=== PATIENT | male | born 1950 | race Caucasian/White ===

== ENCOUNTER 2016-03-21 19:28 | Emergency (ER) | payer MEDICAID ==
[~2016-03-21] VITALS: Ht 170.2 cm; Wt 80.7 kg
[~2016-03-21 19:28] MED LIST: ASPI-498 OR; CLOP75TA41 PO; ENAL5TAB92 PO; FAMO-12 PO; LEV250PM PO; LORA-352 PO; METO25TA3 PO; PRED-188 PO; SIMV-13 PO; [UNRECOGNIZED DRUG - CODE] PO; [UNRECOGNIZED DRUG - OTHER]
[2016-03-21 19:55] VITALS: BP 155/92
== END 2016-03-21 22:10 | disposition left against medical advice (07) ==
LOC: ER 19:30
DX: R06.02 Shortness of breath (principal); R05 Cough; Z53.21 Procedure and treatment not carried out due to patient leaving prior to being seen by health care provider
CPT/HCPCS: 93005

== ENCOUNTER 2016-10-04 06:20 | Emergency (ER) | payer MEDICARE, MEDICAID ==
[~2016-10-04] VITALS: Ht 170.2 cm; Wt 77.6 kg
[2016-10-04] MEDS ORDERED: SODIUM CHLORIDE 0.9% 1,000 ML IV ONE (06:46)
[2016-10-04] MEDS ORDERED: ASPirin 81 mg TAB PO ONE (07:00)
[2016-10-04 07:16] LABS: Basophils # (auto) 0.1 uL; CONDITION Y; Eosinophils # (auto) 0.1 uL; Eosinophils % (auto) 1.5 % (0.0-7.0); Hematocrit 41.9 % (41.0-53.0); Hemoglobin 14.2 g/dL (13.5-17.5); Lymphocytes # (auto) 1.8 uL; Lymphocytes % (auto) 20.5 % (10.0-50.0); Mean Corpuscular Hemoglobin 29.8 pg (28.0-32.0); Mean Corpuscular Hgb Conc. 33.9 g/dL (32.0-36.0); Mean Corpuscular Volume 88.1 fL (80.0-100.0); Monocytes # (auto) 0.5 uL; Monocytes % (auto) 5.4 % (0.0-12.0); Neutrophils # (auto) 6.1 uL; Neutrophils % (auto) 71.6 % (37.0-80.0); Platelet Count (auto) 268 10^3/uL (140-450); Red Cell Distribution Width 14.3 % (11.6-16.0); White Blood Cell 8.5 10^3/uL (4.4-10.8)
[2016-10-04 07:34] LABS: Albumin 3.8 g/dL (3.4-5.0); BUN/Creatinine Ratio 16.7; Calcium 8.3 mg/dL (8.5-10.1); Magnesium 2.1 mg/dL (1.6-2.6)
[2016-10-04 07:39] LABS: Bilirubin, Total 0.2 mg/dL (0.2-1.0); Total Protein 6.6 g/dL (6.4-8.2)
[2016-10-04 07:44] LABS: Potassium 3.9 mmol/L (3.5-5.1)
[2016-10-04 07:47] LABS: Partial Thromboplastin Time 26.8 sec (22.64-33.71); Prothrombin Time 10.9 sec (9.37-12.3)
[2016-10-04] MEDS ORDERED: IOHEXOL 350 MG/ML 100ML IJ ONE (10:03)
[2016-10-04 11:45] VITALS: BP 155/81
== END 2016-10-04 11:46 | disposition home or self-care (01) ==
LOC: ER 06:21
DX: F41.9 Anxiety disorder, unspecified (principal); R00.2 Palpitations; Z98.61 Coronary angioplasty status; I25.10 Atherosclerotic heart disease of native coronary artery without angina pectoris; I10 Essential (primary) hypertension; I25.2 Old myocardial infarction; K21.9 Gastro-esophageal reflux disease without esophagitis; J44.9 Chronic obstructive pulmonary disease, unspecified; F32.9 Major depressive disorder, single episode, unspecified; E78.5 Hyperlipidemia, unspecified; F12.10 Cannabis abuse, uncomplicated; F17.210 Nicotine dependence, cigarettes, uncomplicated
CPT/HCPCS: 36415; 71020; 71275; 80053; 83735; 84443; 84484; 85025; 85379; 85610; 85730; 93005; 94761; 96360; 96361; 99285; J7030; Q9967

== ENCOUNTER 2017-01-01 08:59 | Inpatient (IN) | payer MEDICAID, MEDICARE ==
[~2017-01-01] VITALS: Ht 170.2 cm; Wt 79.4 kg
[2017-01-01] MEDS ORDERED: ENALAPRIL MALEATE 2.5 MG TAB PO SCH (10:00)
[2017-01-01 10:56] LABS: Basophils # (auto) 0.1 uL; Basophils % (auto) 1.3 % (0.0-2.0); Eosinophils # (auto) 0.2 uL; Eosinophils % (auto) 2.7 % (0.0-7.0); Hematocrit 47.4 % (41.0-53.0); Hemoglobin 16.1 g/dL (13.5-17.5); Lymphocytes # (auto) 1.4 uL; Lymphocytes % (auto) 20.8 % (10.0-50.0); Mean Corpuscular Hemoglobin 29.9 pg (28.0-32.0); Mean Corpuscular Volume 87.8 fL (80.0-100.0); Monocytes # (auto) 0.3 uL; Monocytes % (auto) 4.5 % (0.0-12.0); Neutrophils # (auto) 4.9 uL; Neutrophils % (auto) 70.7 % (37.0-80.0); Platelet Count (auto) 223 10^3/uL (140-450); Red Blood Cells 5.39 10^6/uL (4.5-5.90); Red Cell Distribution Width 14.2 % (11.8-14.3); White Blood Cell 6.9 10^3/uL (4.4-10.8)
[2017-01-01] MEDS ORDERED: SODIUM CHLORIDE 0.9% 1,000 ML IV ONE (11:00)
[2017-01-01] MEDS ORDERED: HYDROmorphone HCL 2 MG/ML VL IV ONE (11:00)
[2017-01-01] MEDS ORDERED: ONDANSETRON HCL 4 MG/2 ML VIAL IV ONE (11:00)
[2017-01-01 11:10] LABS: Alanine Aminotransferase 27 U/L (16-61); Anion Gap 7 (5-15); Aspartate Aminotransferase 19 U/L (15-37); BUN/Creatinine Ratio 12.1; Blood Urea Nitrogen 11 mg/dL (7-18); Calcium 9.1 mg/dL (8.5-10.1); Carbon Dioxide 25 mmol/L (21-32); Chloride 107 mmol/L (98-107); GFR African American 108 mL/min; GFR Non-African American 89 mL/min; Glucose 88 mg/dL (74-106); Magnesium 2.1 mg/dL (1.6-2.6); Potassium 4.1 mmol/L (3.5-5.1); Sodium 139 mmol/L (136-145)
[2017-01-01 11:15] LABS: Alkaline Phosphatase 58 U/L (45-117); Bilirubin, Total 0.7 mg/dL (0.2-1.0); Total Protein 7.2 g/dL (6.4-8.2)
[2017-01-01] MEDS ORDERED: PANTOPRAZOLE 40 MG/10 ML VIAL IV ONE (11:15)
[2017-01-01 11:32] LABS: Amylase 93 U/L (25-115); Blood Alcohol < 3.0 mg/dL (0-5); Lipase 245 U/L (73-393)
[2017-01-01 11:50] LABS: Alcohol, Urine < 3.0 mg/dL (0-5); Amphetamine Screen, Urine NEGATIVE (NEGATIVE); Barbiturate Scree,Urine NEGATIVE (NEGATIVE); Benzodiazephine Screen, Urine NEGATIVE (NEGATIVE); Cannabinoid Screen, Urine POSITIVE (NEGATIVE); Cocaine Screen, Urine NEGATIVE (NEGATIVE); Opiate Scree,Urine NEGATIVE (NEGATIVE); Phencyclidine Screen, Urine NEGATIVE (NEGATIVE)
[2017-01-01] MEDS: SODIUM CHLORIDE 0.9% 1,000 ML IV SCH ×2 (13:58→21:50)
[2017-01-01] MEDS ORDERED: ACETAMINOPHEN 500 MG TAB PO PRN (14:00)
[2017-01-01] MEDS ORDERED: HYDROmorphone HCL 2 MG/ML VL IV PRN (14:00)
[2017-01-01] MEDS ORDERED: HYDROcodone-ACET 5/325MG TAB PO PRN (14:00)
[2017-01-01] MEDS ORDERED: NITROGLYCERIN 0.4 MG SL TAB SL PRN (14:00)
[2017-01-01] MEDS ORDERED: TEMAZEPAM 15 MG CAP PO PRN (14:00)
[2017-01-01] MEDS ORDERED: ALBUTEROL SULF 2.5 MG/0.5ML(0.5%) NEB SOLN NEB PRN (14:00)
[2017-01-01] MEDS ORDERED: PROMETHAZINE HCL 25 MG/ML 1ML IV PRN (14:00)
[2017-01-01] MEDS ORDERED: FAMOTIDINE 20 MG TAB PO ONE ×2 (14:15→15:45)
[2017-01-01] MEDS ORDERED: METOPROLOL TARTRATE 25 MG TAB PO ONE ×2 (14:15→15:45)
[2017-01-01] MEDS ORDERED: CLOPIDOGREL BISULFATE 75 MG TAB PO ONE ×3 (14:15→17:45)
[2017-01-01] MEDS ORDERED: ENOXAPARIN SOD 40 MG/0.4 ML SYRINGE SC ONE ×2 (14:15→15:45)
[2017-01-01] MEDS ORDERED: ENALAPRIL MALEATE 2.5 MG TAB PO ONE (14:15)
[2017-01-01] MEDS ORDERED: NITROGLYCERIN 0.2MG/HR TOPICAL PATCH TD ONE ×2 (14:15→15:45)
[2017-01-01 14:48] VITALS: BP 127/83
[2017-01-01 18:30] VITALS: BP 110/60
[2017-01-01 20:00] VITALS: BP 96/64
[2017-01-01 21:44] VITALS: BP 93/64
[2017-01-01] MEDS ORDERED: ATORVASTATIN 20 MG TAB PO SCH (22:00)
[2017-01-01] MEDS ORDERED: METOPROLOL TARTRATE 25 MG TAB PO SCH (22:00)
[2017-01-02 04:38] VITALS: BP 95/60
[2017-01-02 06:18] LABS: Cholesterol 138 mg/dL (< 200); HDL Cholesterol 40 mg/dL (40-59); LDL Cholesterol 90 mg/dL (< 100); Triglycerides 107 mg/dL (< 150)
[2017-01-02] MEDS: LORazepam 0.5 MG TAB PO PRN ×2 (08:56→16:01)
[2017-01-02 09:00] VITALS: BP 105/67
[2017-01-02] MEDS ORDERED: SODIUM CHLORIDE 0.9% 1,000 ML IV ONE (09:30)
[2017-01-02] MEDS ORDERED: ENOXAPARIN SOD 40 MG/0.4 ML SYRINGE SC SCH (10:00)
[2017-01-02] MEDS ORDERED: FAMOTIDINE 20 MG TAB PO SCH (10:00)
[2017-01-02] MEDS ORDERED: ASPirin 81 mg TAB PO SCH (10:00)
[2017-01-02] MEDS ORDERED: NITROGLYCERIN 0.2MG/HR TOPICAL PATCH TD SCH (10:00)
[2017-01-02] MEDS ORDERED: CLOPIDOGREL BISULFATE 75 MG TAB PO SCH (10:00)
[2017-01-02] MEDS ORDERED: SODIUM CHLORIDE 0.9% 1,000 ML IV SCH (10:30)
[2017-01-02 13:17] VITALS: BP 114/73
[2017-01-02 17:11] VITALS: BP 122/77
== END 2017-01-02 16:45 | disposition left against medical advice (07) | DRG 303 ==
LOC: ER 08:59 → TELE 09:00 → ER 13:56 → TELE-E-ADS 17:31 → TELE-EAST 18:57
PROVIDERS: ADMIT Internal Medicine; ATTEND Internal Medicine
DX: I25.10 Atherosclerotic heart disease of native coronary artery without angina pectoris (principal); I95.9 Hypotension, unspecified; E78.5 Hyperlipidemia, unspecified; J44.9 Chronic obstructive pulmonary disease, unspecified; F12.10 Cannabis abuse, uncomplicated; F17.210 Nicotine dependence, cigarettes, uncomplicated; K21.9 Gastro-esophageal reflux disease without esophagitis; I10 Essential (primary) hypertension; I25.2 Old myocardial infarction; Z82.49 Family history of ischemic heart disease and other diseases of the circulatory system; Z82.5 Family history of asthma and other chronic lower respiratory diseases; Z95.5 Presence of coronary angioplasty implant and graft; Z88.5 Allergy status to narcotic agent; Z88.0 Allergy status to penicillin; Z88.2 Allergy status to sulfonamides; Z88.8 Allergy status to other drugs, medicaments and biological substances; Z79.2 Long term (current) use of antibiotics; Z79.82 Long term (current) use of aspirin; Z79.899 Other long term (current) drug therapy
CPT/HCPCS: 36415; 71020; 80053; 80061; 80307; 80320; 82150; 82550; 83690; 83735; 84484; 85025; 85379; 85652; 86141; 93005; 93306; 96361; 96372; 96374; 96375; C9113; J2405

== ENCOUNTER 2017-07-10 11:05 | Emergency (ER) | payer MEDICARE, MEDICAID ==
[~2017-07-10] VITALS: Ht 170.2 cm; Wt 81.6 kg
[2017-07-10 11:37] VITALS: BP 135/80
[2017-07-10] MEDS ORDERED: TETRACAINE HCL 0.5% OPTH(EYE) SOLN 4ML EACHEYE ONE (11:45)
[2017-07-10] MEDS ORDERED: FLUORESCEIN SOD 1 MG TEST STRIP OP ONE (11:45)
== END 2017-07-10 12:48 | disposition home or self-care (01) ==
LOC: ER 11:11
DX: T15.02XA Foreign body in cornea, left eye, initial encounter (principal); F17.210 Nicotine dependence, cigarettes, uncomplicated; I10 Essential (primary) hypertension; I25.10 Atherosclerotic heart disease of native coronary artery without angina pectoris; E78.5 Hyperlipidemia, unspecified; J44.9 Chronic obstructive pulmonary disease, unspecified; K21.9 Gastro-esophageal reflux disease without esophagitis; Z79.82 Long term (current) use of aspirin; Z88.0 Allergy status to penicillin; X58.XXXA Exposure to other specified factors, initial encounter; Y93.89 Activity, other specified; Y92.89 Other specified places as the place of occurrence of the external cause; Y99.8 Other external cause status

== ENCOUNTER 2018-06-02 08:57 | Inpatient (IN) | payer MEDICARE, MEDICAID | END 2018-06-03 15:27 | disposition home or self-care (01) | LOC: ER 08:57 → TELE-WESTW 11:15 | DX: R07.9 Chest pain, unspecified (principal); F32.9 Major depressive disorder, single episode, unspecified; F41.9 Anxiety disorder, unspecified; E78.5 Hyperlipidemia, unspecified; M19.90 Unspecified osteoarthritis, unspecified site; I50.9 Heart failure, unspecified; I11.0 Hypertensive heart disease with heart failure ==

== ENCOUNTER 2018-12-27 13:43 | Emergency (ER) | payer MEDICARE, MEDICAID ==
[~2018-12-27] VITALS: Ht 170.2 cm; Wt 77.1 kg
[~2018-12-27 13:43] MED LIST changes: -CLOP75TA41 PO; +ENAL10TA2 PO; -ENAL5TAB92 PO; -FAMO-12 PO; -LEV250PM PO; -LORA-352 PO; -METO25TA3 PO; +METO25TA36 PO; -PRED-188 PO; -SIMV-13 PO; -[UNRECOGNIZED DRUG - CODE] PO; -[UNRECOGNIZED DRUG - OTHER]
[2018-12-27 16:56] VITALS: BP 125/82
== END 2018-12-27 16:58 | disposition home or self-care (01) ==
LOC: ER 13:54
DX: S20.212A Contusion of left front wall of thorax, initial encounter (principal); I25.10 Atherosclerotic heart disease of native coronary artery without angina pectoris; J44.9 Chronic obstructive pulmonary disease, unspecified; F32.9 Major depressive disorder, single episode, unspecified; E78.5 Hyperlipidemia, unspecified; I10 Essential (primary) hypertension; I25.2 Old myocardial infarction; F17.210 Nicotine dependence, cigarettes, uncomplicated; Z88.5 Allergy status to narcotic agent; Z88.0 Allergy status to penicillin; Z88.2 Allergy status to sulfonamides; Y04.0XXA Assault by unarmed brawl or fight, initial encounter; Y93.89 Activity, other specified; Y92.89 Other specified places as the place of occurrence of the external cause; Y99.8 Other external cause status
CPT/HCPCS: 71101; 93005

== ENCOUNTER 2019-06-10 19:13 | Emergency (ER) | payer MEDICARE, MEDICAID ==
[~2019-06-10] VITALS: Ht 170.2 cm; Wt 74.8 kg
[2019-06-10] MEDS ORDERED: fentaNYL CITRATE 100 MCG/2 ML VL IV ONE ×2 (19:45→20:45)
[2019-06-10] MEDS ORDERED: IOHEXOL 300 MG/ML 100ML BOTTLE IJ ONE (19:49)
[2019-06-10 20:02] LABS: Basophils # (auto) 0.2 10 ^3/uL (0-0.2); Basophils % (auto) 1.5 % (0.0-2.0); Eosinophils # (auto) 0.2 10 ^3/uL (0-0.8); Hematocrit 43.2 % (41.0-53.0); Hemoglobin 14.5 g/dL (13.5-17.5); Lymphocytes # (auto) 2.4 10 ^3/uL (0.4-5.4); Lymphocytes % (auto) 22.9 % (10.0-50.0); Mean Corpuscular Hemoglobin 29.2 pg (28.0-32.0); Mean Corpuscular Hgb Conc. 33.6 g/dL (32.0-36.0); Mean Corpuscular Volume 86.9 fL (80.0-100.0); Monocytes # (auto) 0.5 10 ^3/uL (0-1.3); Monocytes % (auto) 4.9 % (0.0-12.0); Neutrophils # (auto) 7.1 10 ^3/uL (1.6-8.6); Neutrophils % (auto) 68.7 % (37.0-80.0); Nucleated Red Blood Cells % 0.1 %; Platelet Count (auto) 249 10^3/uL (140-450); Red Blood Cells 4.97 10^6/uL (4.5-5.90); Red Cell Distribution Width 13.8 % (11.8-14.3); White Blood Cell 10.4 10^3/uL (4.4-10.8)
[2019-06-10 20:25] LABS: Albumin 3.6 g/dL (3.4-5.0); BUN/Creatinine Ratio 11.6; Calcium 8.7 mg/dL (8.5-10.1); Magnesium 1.9 mg/dL (1.6-2.6); Potassium 3.8 mmol/L (3.5-5.1)
[2019-06-10 20:30] LABS: Bilirubin, Total 0.5 mg/dL (0.2-1.0); Total Protein 7.1 g/dL (6.4-8.2)
[2019-06-10 21:02] LABS: Urine Bacteria NONE SEEN /hpf (None Seen); Urine Blood 1+ /uL (Negative); Urine Mucus FEW (None Seen); Urine Specific Gravity 1.015 (1.001-1.035); Urine WBC 1 /hpf (0 - 3)
[2019-06-10 22:00] VITALS: BP 102/76
[2019-06-10] MEDS ORDERED: HYDROcodone-ACET 10/325MG TAB PO ONE (22:15)
== END 2019-06-10 22:30 | disposition home or self-care (01) ==
LOC: ER 19:14
DX: K76.0 Fatty (change of) liver, not elsewhere classified (principal); K76.89 Other specified diseases of liver; I25.10 Atherosclerotic heart disease of native coronary artery without angina pectoris; J44.9 Chronic obstructive pulmonary disease, unspecified; I10 Essential (primary) hypertension; I25.2 Old myocardial infarction; E78.5 Hyperlipidemia, unspecified; F17.210 Nicotine dependence, cigarettes, uncomplicated; Z79.82 Long term (current) use of aspirin; Z88.0 Allergy status to penicillin; Z79.899 Other long term (current) drug therapy; Z88.2 Allergy status to sulfonamides; Z88.5 Allergy status to narcotic agent
CPT/HCPCS: 36415; 71045; 74177; 80053; 81001; 82150; 83690; 83735; 84484; 85025; 93005; 96374; 96376; 99285; J3010; Q9967

== ENCOUNTER 2020-01-03 11:03 | Emergency (ER) | payer MEDICARE, MEDICAID ==
[~2020-01-03] VITALS: Ht 170.2 cm; Wt 79.4 kg
[~2020-01-03 11:03] MED LIST changes: +ENAL10TA13 PO; -ENAL10TA2 PO
[2020-01-03 11:54] LABS: Basophils # (auto) 0.1 10 ^3/uL (0-0.2); Basophils % (auto) 1.4 % (0.0-2.0); Eosinophils # (auto) 0.2 10 ^3/uL (0-0.8); Eosinophils % (auto) 3.4 % (0.0-7.0); Hematocrit 43.6 % (41.0-53.0); Hemoglobin 14.9 g/dL (13.5-17.5); Lymphocytes # (auto) 2.2 10 ^3/uL (0.4-5.4); Mean Corpuscular Hgb Conc. 34.1 g/dL (32.0-36.0); Mean Corpuscular Volume 88.1 fL (80.0-100.0); Monocytes # (auto) 0.4 10 ^3/uL (0-1.3); Monocytes % (auto) 5.2 % (0.0-12.0); Nucleated Red Blood Cells % 0.1 %; Platelet Count (auto) 241 10^3/uL (140-450); Red Blood Cells 4.95 10^6/uL (4.5-5.90); Red Cell Distribution Width 14.4 % (11.8-14.3); White Blood Cell 6.9 10^3/uL (4.4-10.8)
[2020-01-03 12:23] LABS: Albumin 3.7 g/dL (3.4-5.0); Anion Gap 5 (5-15); Blood Urea Nitrogen 15 mg/dL (7-18); Calcium 8.6 mg/dL (8.5-10.1); Carbon Dioxide 25 mmol/L (21-32); Chloride 111 mmol/L (98-107); Glucose 88 mg/dL (74-106); Magnesium 2.3 mg/dL (1.6-2.6); Potassium 3.8 mmol/L (3.5-5.1); Sodium 141 mmol/L (136-145)
[2020-01-03 12:29] LABS: Alanine Aminotransferase 19 U/L (16-61); Alkaline Phosphatase 54 U/L (45-117); Aspartate Aminotransferase 11 U/L (15-37); BUN/Creatinine Ratio 13.5; Bilirubin, Total 0.3 mg/dL (0.2-1.0); GFR African American 85 mL/min; GFR Non-African American 70 mL/min; Total Protein 6.5 g/dL (6.4-8.2)
[2020-01-03 12:37] VITALS: BP 128/81
[2020-01-03] MEDS ORDERED: ALBUTEROL SULF 2.5 MG/0.5ML(0.5%) NEB SOLN NEB ONE (15:00)
[2020-01-03] MEDS ORDERED: IPRATROPIUM BROM 0.5 MG/2.5ML INH SOL NEB ONE (15:00)
== END 2020-01-03 16:27 | disposition left against medical advice (07) ==
LOC: ER 11:03
DX: J44.1 Chronic obstructive pulmonary disease with (acute) exacerbation (principal); F17.210 Nicotine dependence, cigarettes, uncomplicated; I25.10 Atherosclerotic heart disease of native coronary artery without angina pectoris; I10 Essential (primary) hypertension; I25.2 Old myocardial infarction; E78.5 Hyperlipidemia, unspecified; Z20.828 Contact with and (suspected) exposure to other viral communicable diseases; Z98.61 Coronary angioplasty status
CPT/HCPCS: 36415; 71045; 80053; 83605; 83735; 84484; 85025; 87040; 87426; 93005

== ENCOUNTER 2022-09-11 07:05 | Emergency (ER) | payer OTHER, MEDICAID ==
[~2022-09-11] VITALS: Ht 170.2 cm; Wt 76.2 kg
[~2022-09-11 07:05] MED LIST changes: -ENAL10TA13 PO; +ENAL1TAB47 PO
[2022-09-11 07:31] LABS: Basophils # (auto) 0 10 ^3/uL (0-0.2); Basophils % (auto) 0.1 % (0.0-2.0); Eosinophils # (auto) 0.5 10 ^3/uL (0-0.8); Eosinophils % (auto) 6.2 % (0.0-7.0); Hematocrit 44.8 % (41.0-53.0); Lymphocytes # (auto) 2.2 10 ^3/uL (0.4-5.4); Lymphocytes % (auto) 27.4 % (10.0-50.0); Mean Corpuscular Hemoglobin 29.2 pg (28.0-32.0); Mean Corpuscular Hgb Conc. 33.4 g/dL (32.0-36.0); Mean Corpuscular Volume 87.5 fL (80.0-100.0); Monocytes # (auto) 0.5 10 ^3/uL (0-1.3); Monocytes % (auto) 6.6 % (0.0-12.0); Neutrophils # (auto) 4.7 10 ^3/uL (1.6-8.6); Neutrophils % (auto) 59.7 % (37.0-80.0); Nucleated Red Blood Cells % 0.1 %; Red Blood Cells 5.13 10^6/uL (4.5-5.90); Red Cell Distribution Width 14.7 % (11.8-14.3); White Blood Cell 7.9 10^3/uL (4.4-10.8)
[2022-09-11 07:47] LABS: Albumin 3.8 g/dL (3.4-5.0); Magnesium 2.4 mg/dL (1.6-2.6); Potassium 4.3 mmol/L (3.5-5.1)
[2022-09-11 07:51] LABS: BUN/Creatinine Ratio 17.9 (10.0-20.0); Bilirubin, Total 0.3 mg/dL (0.2-1.0); Total Protein 6.7 g/dL (6.4-8.2)
[2022-09-11 08:30] LABS: Urine Bacteria FEW /hpf (None Seen); Urine Blood 1+ /uL (Negative); Urine Hyaline Cast FEW /lpf (0 - 2); Urine Mucus FEW (None Seen); Urine Specific Gravity 1.022 (1.001-1.035); Urine WBC 6 /hpf (0 - 3)
[2022-09-11 08:38] LABS: Alcohol, Urine < 3.0 mg/dL (0-10); Amphetamine Screen, Urine NEGATIVE (NEGATIVE); Barbiturate Scree,Urine NEGATIVE (NEGATIVE); Benzodiazephine Screen, Urine NEGATIVE (NEGATIVE); Cannabinoid Screen, Urine POSITIVE (NEGATIVE); Cocaine Screen, Urine NEGATIVE (NEGATIVE); Opiate Scree,Urine NEGATIVE (NEGATIVE); Phencyclidine Screen, Urine NEGATIVE (NEGATIVE)
[2022-09-11] MEDS ORDERED: SODIUM CHLORIDE 0.9% 1,000 ML IVB ONE (10:00)
[2022-09-11] MEDS ORDERED: ONDANSETRON HCL 4 MG/2 ML VIAL IV ONE (10:00)
[2022-09-11] MEDS ORDERED: HYDROmorphone HCL 2 MG/ML VL/or syr IV ONE (10:00)
[2022-09-11 10:15] VITALS: BP 155/95
[2022-09-11] MEDS ORDERED: IOHEXOL 300 MG/ML 100ML BOTTLE IJ ONE (10:20)
== END 2022-09-11 14:41 | disposition left against medical advice (07) ==
LOC: ER 07:05
DX: K57.30 Diverticulosis of large intestine without perforation or abscess without bleeding (principal); K40.90 Unilateral inguinal hernia, without obstruction or gangrene, not specified as recurrent; I25.2 Old myocardial infarction; I10 Essential (primary) hypertension; E78.5 Hyperlipidemia, unspecified; F32.9 Major depressive disorder, single episode, unspecified; J44.9 Chronic obstructive pulmonary disease, unspecified; I25.10 Atherosclerotic heart disease of native coronary artery without angina pectoris; F17.210 Nicotine dependence, cigarettes, uncomplicated; Z88.5 Allergy status to narcotic agent; Z98.890 Other specified postprocedural states; Z88.0 Allergy status to penicillin; Z88.2 Allergy status to sulfonamides; Z79.82 Long term (current) use of aspirin; Z79.899 Other long term (current) drug therapy
CPT/HCPCS: 36415; 71045; 74177; 80053; 80307; 80320; 81001; 83735; 84484; 85025; 93005; 96360; 96361; 99285; J7030; Q9967

== ENCOUNTER 2023-03-12 11:01 | Emergency (ER) | payer OTHER, MEDICAID ==
[~2023-03-12] VITALS: Ht 170.2 cm; Wt 79.5 kg
[2023-03-12 13:17] LABS: Basophils # (auto) 0.1 10 ^3/uL (0-0.2); Eosinophils # (auto) 0.4 10 ^3/uL (0-0.8); Eosinophils % (auto) 5.1 % (0.0-7.0); Hemoglobin 15.2 g/dL (13.5-17.5); Lymphocytes # (auto) 2.3 10 ^3/uL (0.4-5.4); Mean Corpuscular Hemoglobin 28.7 pg (28.0-32.0); Mean Corpuscular Hgb Conc. 33.1 g/dL (32.0-36.0); Mean Corpuscular Volume 86.6 fL (80.0-100.0); Monocytes # (auto) 0.4 10 ^3/uL (0-1.3); Monocytes % (auto) 5.3 % (0.0-12.0); Neutrophils % (auto) 55.6 % (37.0-80.0); Nucleated Red Blood Cells % 0.1 %; Red Blood Cells 5.31 10^6/uL (4.5-5.90); Red Cell Distribution Width 14.3 % (11.8-14.3); White Blood Cell 7.1 10^3/uL (4.4-10.8)
[2023-03-12 13:34] VITALS: BP 140/82; PULSE 68; RESP 15; TEMP 98.2; O2SAT 96
[2023-03-12 13:36] LABS: Albumin 4.2 g/dL (3.2-4.8); Alkaline Phosphatase 57 U/L (46-116); Anion Gap 6 (5-15); Aspartate Aminotransferase 15 U/L (13-40); BUN/Creatinine Ratio 9.9 (10.0-20.0); Bilirubin, Total 0.7 mg/dL (0.2-1.0); Blood Urea Nitrogen 10 mg/dL (9-23); Calcium 9.1 mg/dL (8.7-10.4); Carbon Dioxide 26 mmol/L (20-30); Chloride 109 mmol/L (98-107); Glucose 80 mg/dL (74-106); Potassium 4.5 mmol/L (3.5-5.1); Sodium 141 mmol/L (136-145); Total Protein 6.6 g/dL (5.7-8.2)
[2023-03-12 13:37] LABS: Alanine Aminotransferase < 9 U/L (7-40)
[2023-03-12] MEDS ORDERED: ACET-1080 PO (14:36)
== END 2023-03-12 14:37 | disposition home or self-care (01) ==
LOC: ER 11:01
DX: I10 Essential (primary) hypertension (principal); R51.9 Headache, unspecified; I25.2 Old myocardial infarction; I25.10 Atherosclerotic heart disease of native coronary artery without angina pectoris; E78.5 Hyperlipidemia, unspecified; F17.210 Nicotine dependence, cigarettes, uncomplicated; Z79.82 Long term (current) use of aspirin; Z79.899 Other long term (current) drug therapy; Z88.0 Allergy status to penicillin; Z88.2 Allergy status to sulfonamides; Z88.5 Allergy status to narcotic agent
CPT/HCPCS: 36415; 70450; 80053; 84484; 85025

== ENCOUNTER 2023-10-27 10:47 | Inpatient (IN) | payer OTHER, MEDICAID ==
[~2023-10-27] VITALS: Ht 170.2 cm; Wt 77.4 kg
[~2023-10-27 10:47] MED LIST changes: +ACET-1080 PO
[2023-10-27 11:00] VITALS: PULSE 85; RESP 16; O2SAT 98
[2023-10-27] MEDS: HYDROmorphone HCL 2 MG/ML VL/or syr IV ONE ×2 (11:15)
[2023-10-27] MEDS: ONDANSETRON HCL 4 MG/2 ML VIAL IV ONE (11:20)
[2023-10-27] MEDS: SODIUM CHLORIDE 0.9% 1,000 ML IV ONE (11:23)
[2023-10-27 12:02] LABS: Basophils # (auto) 0.1 10 ^3/uL (0-0.2); Eosinophils # (auto) 0.3 10 ^3/uL (0-0.8); Hematocrit 45.7 % (41.0-53.0); Hemoglobin 15.8 g/dL (13.5-17.5); Lymphocytes # (auto) 2.2 10 ^3/uL (0.4-5.4); Lymphocytes % (auto) 33.2 % (10.0-50.0); Mean Corpuscular Hgb Conc. 34.6 g/dL (32.0-36.0); Mean Corpuscular Volume 86.8 fL (80.0-100.0); Monocytes # (auto) 0.3 10 ^3/uL (0-1.3); Monocytes % (auto) 4.4 % (0.0-12.0); Neutrophils # (auto) 3.8 10 ^3/uL (1.6-8.6); Neutrophils % (auto) 56.4 % (37.0-80.0); Nucleated Red Blood Cells % 0.2 %; Platelet Count (auto) 237 10^3/uL (140-450); Red Blood Cells 5.26 10^6/uL (4.5-5.90); Red Cell Distribution Width 14.1 % (11.8-14.3); White Blood Cell 6.7 10^3/uL (4.4-10.8)
[2023-10-27 12:03] LABS: Alanine Aminotransferase 19 U/L (7-40); Albumin 4.3 g/dL (3.2-4.8); Alkaline Phosphatase 62 U/L (46-116); Anion Gap 5 (5-15); Aspartate Aminotransferase 16 U/L (13-40); BUN/Creatinine Ratio 15.7 (10.0-20.0); Bilirubin, Total 0.8 mg/dL (0.2-1.0); Blood Urea Nitrogen 17 mg/dL (9-23); Calcium 9.4 mg/dL (8.7-10.4); Carbon Dioxide 23 mmol/L (20-30); Chloride 109 mmol/L (98-107); Glucose 95 mg/dL (74-106); Potassium 4.1 mmol/L (3.5-5.1); Sodium 137 mmol/L (136-145); Total Protein 6.6 g/dL (5.7-8.2)
[2023-10-27] MEDS: PIPERACILLIN-TAZOB 3.375GM 100 ML IV ONE (12:45)
[2023-10-27] MEDS: BUPIVACAINE 0.25% INJ 50ML VIAL ONE (14:04)
[2023-10-27] MEDS: LIDOCAINE W/ EPINEPHRINE 1% 20ML VIAL ONE (14:04)
[2023-10-27] MEDS: ceFAZolin 2 GM/D5W50ml 50 ML IV ONE (14:04)
[2023-10-27] MEDS: SUCCINYLCHOLINE CHLORIDE 20 MG/ML 10ML VIAL IV ONE (14:17)
[2023-10-27] MEDS ORDERED: fentaNYL CITRATE 100 MCG/2 ML VL ONE (14:18)
[2023-10-27] MEDS ORDERED: PROPOFOL 10 MG/ML 20 ML IV ONE (14:18)
[2023-10-27 14:37] LABS: INR 1.05 (0.9-1.15); Partial Thromboplastin Time 27.3 SEC (24.5-34.5); Prothrombin Time 11.1 sec (9.3-11.8)
[2023-10-27] MEDS ORDERED: MEPERIDINE HCL (25 MG/ML) 1ML VIAL ONE (15:02)
[2023-10-27] MEDS ORDERED: DexAMETHasone SOD PHOS 10MG/1ML VIAL INJ ONE (15:04)
[2023-10-27] MEDS ORDERED: ONDANSETRON HCL 4 MG/2 ML VIAL ONE (15:04)
[2023-10-27] MEDS ORDERED: GLYCOPYRROLATE 0.2 MG/ML 1ML VIAL ONE (15:34)
[2023-10-27] MEDS ORDERED: NEOSTIGMINE 1 MG/ML INJ (10mg/10ML VIAL) ONE (15:36)
[2023-10-27 15:45] VITALS: RESP 16; O2SAT 100
[2023-10-27] MEDS ORDERED: ONDANSETRON HCL 4 MG/2 ML VIAL IV ONE ×2 (16:00→16:30)
[2023-10-27] MEDS ORDERED: HYDROmorphone HCL 2 MG/ML VL/or syr IV PRN ×2 (16:00)
[2023-10-27] MEDS ORDERED: HYDROmorphone HCL 2 MG/ML VL/or syr IV ONE (16:30)
[2023-10-27] MEDS ORDERED: ceFAZolin 1GM/50ML 50 ML IV ONE (16:30)
[2023-10-27] MEDS ORDERED: NITROGLYCERIN 0.4 MG SL TAB SL PRN (17:30)
[2023-10-27] MEDS ORDERED: MORPHINE SULFATE INJ 2 MG/ml SYRG IV PRN (17:30)
[2023-10-27] MEDS: D5W/SOD CHL 0.45%/KCL 20MEQ 1,000 ML IV ONE (18:19)
[2023-10-27 18:25] VITALS: O2SAT 97
[2023-10-27] MEDS ORDERED: HYDROcodone-ACET 10/325MG TAB PO PRN (19:30)
[2023-10-27 20:00] VITALS: PULSE 79; RESP 18; O2SAT 95
[2023-10-27 21:00] VITALS: BP 105/70; PULSE 79; RESP 18; TEMP 97.7; O2SAT 95
[2023-10-28] VITALS (8 sets, daily range): BP systolic 94–161; BP diastolic 63–85; PULSE 64–131; RESP 16–19; TEMP 97.5–98.7; O2SAT 92–100
[2023-10-28 06:03] LABS: Basophils # (auto) 0.1 10 ^3/uL (0-0.2); Basophils % (auto) 0.4 % (0.0-2.0); Eosinophils # (auto) 0 10 ^3/uL (0-0.8); Hematocrit 42.4 % (41.0-53.0); Hemoglobin 14.6 g/dL (13.5-17.5); Lymphocytes # (auto) 1.2 10 ^3/uL (0.4-5.4); Lymphocytes % (auto) 9.4 % (10.0-50.0); Mean Corpuscular Hemoglobin 29.9 pg (28.0-32.0); Mean Corpuscular Hgb Conc. 34.5 g/dL (32.0-36.0); Mean Corpuscular Volume 86.7 fL (80.0-100.0); Monocytes # (auto) 0.5 10 ^3/uL (0-1.3); Monocytes % (auto) 3.7 % (0.0-12.0); Neutrophils # (auto) 10.7 10 ^3/uL (1.6-8.6); Neutrophils % (auto) 86.5 % (37.0-80.0); Nucleated Red Blood Cells % 0.1 %; Platelet Count (auto) 219 10^3/uL (140-450); Red Blood Cells 4.89 10^6/uL (4.5-5.90); White Blood Cell 12.4 10^3/uL (4.4-10.8)
[2023-10-28 06:17] LABS: Chloride 108 mmol/L (98-107); Potassium 4.9 mmol/L (3.5-5.1); Sodium 137 mmol/L (136-145)
[2023-10-28 06:18] LABS: Anion Gap 6 (5-15); Carbon Dioxide 23 mmol/L (20-30)
[2023-10-28 06:19] LABS: Calcium 8.7 mg/dL (8.7-10.4)
[2023-10-28 06:23] LABS: Glucose 142 mg/dL (74-106)
[2023-10-28 06:24] LABS: BUN/Creatinine Ratio 14.1 (10.0-20.0); Blood Urea Nitrogen 14 mg/dL (9-23)
[2023-10-28] MEDS: HYDROcodone-ACET 10/325MG TAB PO PRN (11:42)
[2023-10-29] MEDS: HYDROmorphone HCL 2 MG/ML VL/or syr IV PRN (01:59)
[2023-10-29 05:00] VITALS: BP 164/89; PULSE 111; RESP 20; TEMP 97.7; O2SAT 95
[2023-10-29 05:57] LABS: Chloride 109 mmol/L (98-107); Potassium 4.1 mmol/L (3.5-5.1); Sodium 139 mmol/L (136-145)
[2023-10-29 05:58] LABS: Anion Gap 3 (5-15); Calcium 9.2 mg/dL (8.7-10.4); Carbon Dioxide 27 mmol/L (20-30)
[2023-10-29 06:03] LABS: BUN/Creatinine Ratio 13.1 (10.0-20.0); Blood Urea Nitrogen 13 mg/dL (9-23); Glucose 89 mg/dL (74-106)
[2023-10-29 07:52] LABS: Basophils # (auto) 0.1 10 ^3/uL (0-0.2); Basophils % (auto) 0.4 % (0.0-2.0); Eosinophils # (auto) 0.1 10 ^3/uL (0-0.8); Eosinophils % (auto) 0.5 % (0.0-7.0); Hematocrit 41.1 % (41.0-53.0); Lymphocytes # (auto) 2.7 10 ^3/uL (0.4-5.4); Lymphocytes % (auto) 22.2 % (10.0-50.0); Mean Corpuscular Hemoglobin 29.8 pg (28.0-32.0); Mean Corpuscular Volume 87.7 fL (80.0-100.0); Monocytes # (auto) 0.9 10 ^3/uL (0-1.3); Monocytes % (auto) 7.2 % (0.0-12.0); Neutrophils # (auto) 8.5 10 ^3/uL (1.6-8.6); Neutrophils % (auto) 69.7 % (37.0-80.0); Platelet Count (auto) 210 10^3/uL (140-450); Red Blood Cells 4.69 10^6/uL (4.5-5.90); Red Cell Distribution Width 13.7 % (11.8-14.3); White Blood Cell 12.3 10^3/uL (4.4-10.8)
[2023-10-29 09:00] VITALS: BP 155/88; PULSE 103; RESP 17; TEMP 98; O2SAT 94
[2023-10-29 13:00] VITALS: BP 137/93; PULSE 93; RESP 17; TEMP 98; O2SAT 93
[2023-10-29 17:00] VITALS: BP 130/86; PULSE 104; RESP 17; TEMP 99.4; O2SAT 94
[2023-10-29 20:00] VITALS: PULSE 105; RESP 18; O2SAT 93
[2023-10-29 21:00] VITALS: BP 136/82; PULSE 105; RESP 18; TEMP 98.7; O2SAT 93
[2023-10-29] MEDS: MELATONIN 5 MG TAB PO SCH (21:39)
[2023-10-30 05:00] VITALS: BP 109/83; PULSE 78; RESP 20; TEMP 98.2; O2SAT 94
[2023-10-30 05:57] LABS: Basophils # (auto) 0.1 10 ^3/uL (0-0.2); Basophils % (auto) 1.2 % (0.0-2.0); Eosinophils # (auto) 0.1 10 ^3/uL (0-0.8); Eosinophils % (auto) 0.8 % (0.0-7.0); Hematocrit 39.2 % (41.0-53.0); Hemoglobin 13.5 g/dL (13.5-17.5); Lymphocytes % (auto) 21.3 % (10.0-50.0); Mean Corpuscular Hgb Conc. 34.5 g/dL (32.0-36.0); Mean Corpuscular Volume 87.1 fL (80.0-100.0); Monocytes # (auto) 0.8 10 ^3/uL (0-1.3); Monocytes % (auto) 8.9 % (0.0-12.0); Neutrophils # (auto) 6.4 10 ^3/uL (1.6-8.6); Neutrophils % (auto) 67.8 % (37.0-80.0); Nucleated Red Blood Cells % 0.1 %; Platelet Count (auto) 203 10^3/uL (140-450); Red Cell Distribution Width 13.9 % (11.8-14.3); White Blood Cell 9.4 10^3/uL (4.4-10.8)
[2023-10-30 06:01] LABS: Chloride 106 mmol/L (98-107); Potassium 4.1 mmol/L (3.5-5.1); Sodium 136 mmol/L (136-145)
[2023-10-30 06:02] LABS: Anion Gap 6 (5-15); Calcium 8.9 mg/dL (8.7-10.4); Carbon Dioxide 24 mmol/L (20-30)
[2023-10-30 06:07] LABS: BUN/Creatinine Ratio 11.8 (10.0-20.0); Blood Urea Nitrogen 11 mg/dL (9-23); Glucose 94 mg/dL (74-106)
[2023-10-30 08:46] VITALS: BP 108/68; PULSE 101; RESP 19; TEMP 98.2; O2SAT 93
[2023-10-30 12:44] VITALS: BP 105/77; PULSE 92; RESP 19; TEMP 98.5; O2SAT 94
[2023-10-30 17:00] VITALS: BP 130/89; PULSE 91; RESP 19; TEMP 98.2; O2SAT 91
[2023-10-30 20:00] VITALS: O2SAT 93
[2023-10-30 21:00] VITALS: BP 105/64; PULSE 112; RESP 16; TEMP 97.5; O2SAT 91
[2023-10-31 01:00] VITALS: BP 122/83; PULSE 98; RESP 16; TEMP 97.7; O2SAT 92
[2023-10-31 05:00] VITALS: BP 99/63; PULSE 91; RESP 16; TEMP 97.4; O2SAT 93
[2023-10-31 08:05] VITALS: PULSE 99; RESP 17; O2SAT 92
[2023-10-31 08:17] LABS: Basophils # (auto) 0.1 10 ^3/uL (0-0.2); Basophils % (auto) 0.7 % (0.0-2.0); Eosinophils # (auto) 0.2 10 ^3/uL (0-0.8); Eosinophils % (auto) 1.4 % (0.0-7.0); Hematocrit 41.4 % (41.0-53.0); Hemoglobin 14.1 g/dL (13.5-17.5); Lymphocytes # (auto) 1.8 10 ^3/uL (0.4-5.4); Lymphocytes % (auto) 15.9 % (10.0-50.0); Mean Corpuscular Hemoglobin 29.9 pg (28.0-32.0); Mean Corpuscular Hgb Conc. 34.1 g/dL (32.0-36.0); Mean Corpuscular Volume 87.6 fL (80.0-100.0); Monocytes # (auto) 0.9 10 ^3/uL (0-1.3); Monocytes % (auto) 7.9 % (0.0-12.0); Neutrophils # (auto) 8.2 10 ^3/uL (1.6-8.6); Neutrophils % (auto) 74.1 % (37.0-80.0); Platelet Count (auto) 244 10^3/uL (140-450); Red Blood Cells 4.73 10^6/uL (4.5-5.90); Red Cell Distribution Width 14.1 % (11.8-14.3); White Blood Cell 11.1 10^3/uL (4.4-10.8)
[2023-10-31 08:19] LABS: Chloride 104 mmol/L (98-107); Potassium 4.3 mmol/L (3.5-5.1); Sodium 135 mmol/L (136-145)
[2023-10-31 08:20] LABS: Anion Gap 2 (5-15); Carbon Dioxide 29 mmol/L (20-30)
[2023-10-31 08:21] LABS: Calcium 9.4 mg/dL (8.7-10.4)
[2023-10-31 08:26] LABS: BUN/Creatinine Ratio 14.4 (10.0-20.0); Blood Urea Nitrogen 15 mg/dL (9-23); Glucose 90 mg/dL (74-106)
[2023-10-31 09:00] VITALS: BP 120/78; PULSE 99; RESP 17; TEMP 98.2; O2SAT 92
[2023-10-31 13:00] VITALS: BP 106/76; PULSE 127; RESP 17; TEMP 97.2; O2SAT 96
[2023-10-31] MEDS ORDERED: PERCOT PO (14:31)
[2023-10-31 15:21] VITALS: BP 106/76; PULSE 127; RESP 17; TEMP 97.2; O2SAT 96
== END 2023-10-31 16:10 | disposition home or self-care (01) | DRG 352 ==
LOC: ER 10:47 → OVERFLOW 17:25 → CENTRAL 18:00
PROVIDERS: ADMIT Internal Medicine; ATTEND Internal Medicine
PROC: 0YQ50ZZ Repair Right Inguinal Region, Open Approach (ICD-10-PCS; principal; 2023-10-27 14:35)
DX: K40.30 Unilateral inguinal hernia, with obstruction, without gangrene, not specified as recurrent (principal); I10 Essential (primary) hypertension; I25.10 Atherosclerotic heart disease of native coronary artery without angina pectoris; J44.9 Chronic obstructive pulmonary disease, unspecified; F32.A Depression, unspecified; E78.5 Hyperlipidemia, unspecified; F17.210 Nicotine dependence, cigarettes, uncomplicated; N50.89 Other specified disorders of the male genital organs; R33.9 Retention of urine, unspecified; R58 Hemorrhage, not elsewhere classified; Z87.09 Personal history of other diseases of the respiratory system; Z88.0 Allergy status to penicillin; Z88.5 Allergy status to narcotic agent; Z88.2 Allergy status to sulfonamides; I25.2 Old myocardial infarction; Z82.49 Family history of ischemic heart disease and other diseases of the circulatory system; Z98.61 Coronary angioplasty status
CPT/HCPCS: 36415; 71045; 74176; 80048; 80053; 83605; 83690; 85025; 85610; 85730; 86850; 86880; 86900; 86901; 86905; 86906; 93005; 96374; 96375; 97110; 97116; 97163; 97530; G0378; J0330; J1100; J2405; J2704; J3490

== ENCOUNTER 2024-07-28 14:19 | Inpatient (IN) | payer OTHER, MEDICAID ==
[~2024-07-28] VITALS: Ht 170.2 cm; Wt 75.0 kg
[~2024-07-28 14:19] MED LIST changes: +PERCOT PO
--- NOTE | 2024-07-28 14:27 | ECG ---
[facility] Test Date: 2024-07-28 Test Time: 14:26:22 Pat Name: MAKENNA MORALEZ Department: ER Room: 0265D Gender: M [employer] Systems Administrator: THANH : 1950 Requested By: EMERGENCY EMERGENCY Order Number: [id number] Reading MD: Efra Ortiz Measurements Intervals [place] Rate: 116 P: 71 [place]: 157 QRS: 73 QRSD: 93 T: 48 QT: 330 QTc: 459 Interpretive Statements Sinus tachycardia Borderline repolarization abnormality Artifact in lead(s) V2 Electronically Signed On 07-30-2024 22:21:49 PDT by Efra Ortiz Please click the below link to view image of tracing.
--- NOTE | 2024-07-28 15:12 | DVH ---
EXAM: XR Chest, 1 View CLINICAL INDICATION: CP TECHNIQUE: Frontal view of the chest. COMPARISON: XY CHEST XRAY 1 VIEW on DOS: 10/27/23, XY CHEST PORTABLE on DOS: 09/11/22, CHEST PORTABLE on DOS: 01/03/20, CHEST PORTABLE on DOS: 06/10/19 FINDINGS: LUNGS AND PLEURAL SPACES: Bibasilar atelectasis or pneumonia. No pneumothorax. HEART: Unremarkable. No cardiomegaly. MEDIASTINUM: Unremarkable. Normal mediastinal contour. BONES/JOINTS: Unremarkable. No acute fracture. OTHER FINDINGS: . IMPRESSION: Bibasilar atelectasis or pneumonia.
--- NOTE | 2024-07-28 16:38 | ED.PDOC ---
History of Present Illness HPI Comments 73M presnents to the ER in a wheelchair and w/ prior MHx of AK, COPD, High Lipids, Depression, HTN, CAD;SHx of Stent, Ulcer Sx, RIght Shoulder Sx and the c/c of Cp which started at 1000. Pt reports that he was walking at home when he had a burning sensation across the chest w/ SOB, and a TORRES which is only current. Pt states on taking his aspirin in the morning and after the CP occurred. Denies chills, fever, N/V/D, SOB. Denies any other associated symptom's, modifiers, or recent injuries or sick contact at this time. Chief Complaint: Chest Pain Time Seen by MD: 16:05 Primary Care Provider: Jorge A Wilkins Notes: Nurses Notes, Medications, Allergies Allergies: Coded Allergies: Morphine (Verified Allergy, Unknown, 10/27/23) Penicillins (Verified Allergy, Unknown, 10/27/23) Sulfa Antibiotics (Verified Allergy, Unknown, 10/27/23) Home Meds Active Scripts Oxycodone W/ Acetaminophen (Percocet 5/325MG) 1 Tab Tb, 1 TAB PO TID PRN, #14 TAB Prov:MICHELLE SILVESTRE MD 10/31/23 Acetaminophen (Tylenol 8 Hour Arthritis) 650 Mg Tab, 650 MG PO TID, #30 TAB Prov:NICHELLE REYNOSO 03/12/23 Reported Medications Enalapril Maleate (Enalapril Maleate) 10 Mg Tab, 10 MG PO DAILY, TAB 06/02/18 Aspirin (ASPIRIN 81) 81 Mg Tab, 81 MG OR DAILY, TAB 03/08/13 Metoprolol Succinate (Toprol Xl) 25 Mg Tab, MG PO DAILY 10/29/12 Information Source: Patient Mode of Arrival: Ambulatory Severity: Moderate Timing: Minutes Duration: Since onset, Minutes Prehospital treatment: None Past Medical History PAST MEDICAL HISTORY: CAD, COPD, Depression, High Lipids, HTN, AK Surgical History: PTCA Surgical History (Other): Ulcer Sx, Right Shoulder Sx Family History Family History: Reviewed,noncontributory to illness, Family hx of Cancer Social History Smoker: Cigarettes, Less Than 1 Pack/Day Alcohol: Denies ETOH Use Drugs: Marijuana Lives In: Home Constitutional: denies: chills, diaphoresis, fatigue, fever, malaise, sweats, weakness, others EENTM: denies: blurred vision, double vision, ear bleeding, ear discharge, ear drainage, ear pain, ear ringing, eye pain, eye redness, hearing loss, mouth pain, mouth swelling, nasal discharge, nose bleeding, nose congestion, nose pain, photophobia, tearing, throat pain, throat swelling, voice changes, others Respiratory: denies: cough, hemoptysis, orthopnea, SOB at rest, shortness of breath, SOB with excertion, stridor, wheezing, others Cardiovascular: denies: chest pain, dizzy spells, diaphoresis, Dyspnea on exertion, edema, irregular heart beat, left arm pain, lightheadedness, palpitations, PND, syncope, others Gastrointestinal: denies: abdomen distended, abdominal pain, blood streaked bowels, constipated, diarrhea, dysphagia, difficulty swallowing, hematemesis, melena, nausea, poor appetite, poor fluid intake, rectal bleeding, rectal pain, vomiting, others Genitourinary: denies: burning, dysuria, flank pain, frequency, hematuria, incontinence, penile discharge, penile sore, pain, testicle pain, testicle swelling, urgency, others Neurological: denies: dizziness, fainting, headache, left sided numbness, left sided weakness, numbness, paresthesia, pre-existing deficit, right sided numbness, right sided weakness, seizure, speech problems, tingling, tremors, weakness, others Musculoskeletal: denies: back pain, gout, joint pain, joint swelling, muscle pain, muscle stiffness, neck pain, others Integumetry: denies: bruises, change in color, change in hair/nails, dryness, laceration, lesions, lumps, rash, wounds, others Allergic/Immunocompromised: denies: Difficulty Healing, Frequent Infections, Hives, Itching, others Hematologic/Lymphatic: denies: anemia, blood clots, easy bleeding, easy bruising, swollen glands, others Endocrine: denies: excessive hunger, excessive sweating, excessive thirst, excessive urination, flushing, intolerance to cold, intolerance to heat, unexpla ined weight gain, unexplained weight loss, others Psychiatric: denies: anxiety, bipolar disorder, depression, hopeless, panic disorder, schizophrenia, sleepless, suicidal, others All Other Systems: Reviewed and Negative Physical Exam General Appearance: Moderate Distress HEENT: Normal ENT Inspection, Pharynx Normal, TMs Normal Neck: Full Range of Motion, Non-Tender, Normal, Normal Inspection Respiratory: Chest Non-Tender, Lungs Clear, No Accessory Muscle Use, No Respiratory Distress, Normal Breath Sounds Cardiovascular: No Edema, No JVD, No Murmur, No Gallop, Normal Peripheral Pulses, Regular Rate/Rhythm Breast Exam: Deferred Gastrointestinal: No Organomegaly, Non Tender, No Pulsatile Mass, Normal Bowel Sounds, Soft Genitalia: Deferred Pelvic: Deferred Rectal: Deferred Extremities: No calf tenderness, Normal capillary refill, Normal inspection, Normal range of motion, Non-tender, No pedal edema Musculoskeletal : Apperance: Normal Neurologic: Alert, roving department end finder II-XII nml as Tested, No Motor Deficits, Normal Affect, Normal Mood, No Sensory Deficits Cerebellar Function: Normal Reflexes: Normal Skin: Dry, Normal Color, Warm Lymphatic: No Adenopathy Was a procedure done? Was a procedure done?: No EKG EKG : Pulse Rate (adult): 116 [place]: Normal Cardiac Rhythm: ST Block: None Hypertrophy: None ST: Normal Differential Dx Considerations may include: ACS, AK, non STEMI, PE X-Ray, Labs, Meds, VS Vital Signs Date Time Temp Pulse Resp B/P (MAP) Pulse Ox O2 Delivery O2 Flow Rate FiO2 07/28/24 20:00 91 17 143/98 07/28/24 19:40 98.4 91 17 143/98 (113) 97 98.4 07/28/24 19:40 91 17 97 Room Air* 0 21 07/28/24 17:35 87 07/28/24 16:38 116 07/28/24 15:24 102 07/28/24 14:35 97.5 120 18 152/99 (116) 97 97.5 07/28/24 14:26 116 Lab Test 07/28/24 16:59 07/28/24 15:09 07/28/24 14:30 Range/Units Troponin I High Sensitivity 120 *H 97 *H 90 *H </=54 ng/L White Blood Count 8.7 4.4-10.8 10^3/uL Red Blood Count 5.40 4.5-5.90 10^6/uL Hemoglobin 15.8 13.5-17.5 g/dL Hematocrit 46.4 41.0-53.0 % Mean Corpuscular Volume 85.9 80.0-100.0 fL Mean Corpuscular Hemoglobin 29.2 28.0-32.0 pg Mean Corpuscular Hemoglobin Concent 34.0 32.0-36.0 g/dL Red Cell Distribution Width 14.0 11.8-14.3 % Platelet Count 228 140-450 10^3/uL Mean Platelet Volume 7.8 6.9-10.8 fL Neutrophils (%) (Auto) 52.9 37.0-80.0 % Lymphocytes (%) (Auto) 38.0 10.0-50.0 % Monocytes (%) (Auto) 3.8 0.0-12.0 % Eosinophils (%) (Auto) 4.5 0.0-7.0 % Basophils (%) (Auto) 0.8 0.0-2.0 % Neutrophils # (Auto) 4.6 1.6-8.6 10 ^3/uL Lymphocytes # (Auto) 3.3 0.4-5.4 10 ^3/uL Monocytes # (Auto) 0.3 0-1.3 10 ^3/uL Eosinophils # (Auto) 0.4 0-0.8 10 ^3/uL Basophils # (Auto) 0.1 0-0.2 10 ^3/uL Nucleated Red Blood Cells 0.2 % D-Dimer, Quantitative 1.16 H 0.0-0.49 mg/L FEU Sodium Level 143 136-145 mmol/L Potassium Level 4.0 3.5-5.1 mmol/L Chloride Level 110 H 98-107 mmol/L Carbon Dioxide Level 26 20-31 mmol/L Anion Gap 7 5-15 Blood Urea Nitrogen 17 9-23 mg/dL Creatinine 1.27 0.700-1.30 mg/dL Glomerular Filtration Rate Calc 60 >90 mL/min BUN/Creatinine Ratio 13.4 10.0-20.0 Serum Glucose 114 H 74-106 mg/dL Calcium Level 10.6 H 8.7-10.4 mg/dL Current Medications Medications (Trade) Dose Ordered Sig/Pretty Route Start Time Stop Time Status Last Admin Hydromorphone HCl (Dilaudid Injection) 0.5 mg ONCE ONCE IV 07/28/24 19:00 07/28/24 19:01 DC 07/28/24 20:00 IMPRESSION: Bibasilar atelectasis or pneumonia. IV Hep-Lock has been established The patient was given Dilaudid 0.5 mg IV push for the pain The patient was given Zofran 4 mg IV push for the nausea with the pain The patient's CBC is within normal limits The chemistry panel is within normal limits The D-dimer is elevated at 1.16 The chemistry panel is within normal limits The patient was being admitted at this time. The patient's troponin level went from 90-97 and then to 120 The patient was being given Lovenox A cardiology consult is being obtained. Images Reviewed?: Images reviewed and evaluated by me Time of 1ST Reevaluation: 16:35 Reevaluation 1ST: Unchanged Time of 2ND Reevaluation: 20:09 Reevaluation 2ND: Unchanged Patient Education/Counseling: Diagnosis, Treatment, Prognosis Family Education/Counseling: No Family Present Departure 1 Departure Time of Disposition: 20:09 Impression: Primary Impression: Acute coronary syndrome Additional Impression: Elevated troponin Disposition: ADMITTED INPATIENT Admit to: [facility] Condition: Fair Critical Care Note Critical Care Time?: Yes (45 min-critical care time only) Stability Stability form required: Yes Unstable for transfer: Telemetry monitoring (Telemetry monitoring required), ED Physician Assesment (Clinical assesment) Heart Score Heart Score: Heart Score Response (Comments) Value History Moderate Suspicious 1 EKG Repolarization Disturb 1 Age >65 2 Risk Factors >3 or Hx ASHD 2 Troponin 1-2 x's Normal limit 1 Total 7 I personally scribed for SHERIF KWOK MD ([email or web address]) on 07/28/24 at 16:38. Electronically submitted by Hola Eng ([employer]). I personally scribed for SHERIF KWOK MD ([email or web address]) on 07/28/24 at 18:39. Electronically submitted by Hola Eng ([employer]). SHERIF KWOK MD July 28, 2024 16:38
[2024-07-28 16:48] LABS: Sodium 143 mmol/L (136-145)
[2024-07-28 16:49] LABS: Anion Gap 7 (5-15); Carbon Dioxide 26 mmol/L (20-31)
[2024-07-28 16:50] LABS: Calcium 10.6 mg/dL (8.7-10.4); Chloride 110 mmol/L (98-107)
[2024-07-28 16:54] LABS: BUN/Creatinine Ratio 13.4 (10.0-20.0); Blood Urea Nitrogen 17 mg/dL (9-23)
[2024-07-28 16:56] LABS: Glucose 114 mg/dL (74-106)
[2024-07-28 17:01] LABS: Basophils # (auto) 0.1 10 ^3/uL (0-0.2); Basophils % (auto) 0.8 % (0.0-2.0); Eosinophils # (auto) 0.4 10 ^3/uL (0-0.8); Eosinophils % (auto) 4.5 % (0.0-7.0); Hematocrit 46.4 % (41.0-53.0); Hemoglobin 15.8 g/dL (13.5-17.5); Lymphocytes # (auto) 3.3 10 ^3/uL (0.4-5.4); Mean Corpuscular Hemoglobin 29.2 pg (28.0-32.0); Mean Corpuscular Volume 85.9 fL (80.0-100.0); Monocytes # (auto) 0.3 10 ^3/uL (0-1.3); Monocytes % (auto) 3.8 % (0.0-12.0); Neutrophils # (auto) 4.6 10 ^3/uL (1.6-8.6); Neutrophils % (auto) 52.9 % (37.0-80.0); Nucleated Red Blood Cells % 0.2 %; Platelet Count (auto) 228 10^3/uL (140-450); White Blood Cell 8.7 10^3/uL (4.4-10.8)
[2024-07-28] MEDS: ONDANSETRON HCL 4 MG/2 ML VIAL IV ONE (19:00)
[2024-07-28 19:40] VITALS: PULSE 91; RESP 17; O2SAT 97
[2024-07-28] MEDS: HYDROmorphone HCL 2 MG/ML VL/or syr IV ONE (20:00)
--- NOTE | 2024-07-28 20:33 | ECG ---
[facility] Test Date: 2024-07-28 Test Time: 17:35:02 Pat Name: MAKENNA MORALEZ Department: ED Room: 0265D Gender: M Stitcher Tape Controlled Machine: BREANNA : 1950 Requested By: EMERGENCY EMERGENCY Order Number: [id number] Reading MD: Efra Ortiz Measurements Intervals [place] Rate: 87 P: 80 [place]: 135 QRS: 50 QRSD: 88 T: 28 QT: 356 QTc: 429 Interpretive Statements Sinus rhythm Baseline wander in lead(s) V4 Electronically Signed On 07-30-2024 22:26:19 PDT by Efra Ortiz Please click the below link to view image of tracing.
--- NOTE | 2024-07-28 20:33 | ECG ---
[facility] Test Date: 2024-07-28 Test Time: 15:24:11 Pat Name: MAKENNA MORALEZ Department: ED Room: 0265D Gender: M Bark Tanner: BREANNA : 1950 Requested By: EMERGENCY EMERGENCY Order Number: [id number] Reading MD: Efra Ortiz Measurements Intervals [place] Rate: 102 P: 76 ID: [id number] QRS: 62 QRSD: 91 T: 76 QT: 340 QTc: 443 Interpretive Statements Sinus tachycardia RSR' in V1 or V2, right VCD or RVH Abnormal inferior Q waves Borderline T abnormalities, lateral leads Baseline wander in lead(s) V1 Electronically Signed On 07-30-2024 22:22:44 PDT by Efra Ortiz Please click the below link to view image of tracing.
[2024-07-28] MEDS: IOHEXOL 350 MG/ML 100ML IJ ONE (20:39)
[2024-07-28] MEDS ORDERED: ACETAMINOPHEN 325 MG TAB PO PRN (21:00)
[2024-07-28] MEDS ORDERED: ONDANSETRON HCL 4 MG/2 ML VIAL IV PRN (21:00)
[2024-07-28] MEDS ORDERED: NITROGLYCERIN 0.4 MG SL TAB SL PRN ×2 (21:00→21:15)
[2024-07-28] MEDS: ENOXAPARIN SOD 100 MG/1 ML SYRINGE SC ONE (21:05)
--- NOTE | 2024-07-28 21:10 | DVH ---
Procedure: CT CT ANGIO CHEST CONTRAST Reason for study/Clinical History: cp/sob Comparison Study: None Exam Date: 07/28/2024 08:[address] Angio Chest with Contrast TECHNIQUE: Multiple axial CT images of chest was performed following intravenous contrast administrat ion and coronal reformatting was performed. 3-D/MIP images were obtained. Radiation Dose : CTDI volume is 25 mGy. Dose-length product is 250 mGy*cm FINDINGS: Pulmonary Arteries: There are no filling defects within main, lobar, segmental and visualized subsegm ental branch pulmonary arteries. There is normal dimensional of main PA. Lungs: There is no peripheral pulmonary infarction, consolidation, pleural effusion, or right heart strain. There is no pneumothorax or pneumomediastinum. Aorta and Vasculature: There is normal caliber of thoracic aorta without evidence of aortic dissecti on, intramural hematoma or aneurysm. Lymph Nodes: There is no significant intrathoracic or axillary lymphadenopathy on CT size criteria. Lower Neck: Visualized portions of the thyroid gland are unremarkable. Mediastinum: Heart size is normal. There is no pericardial effusion. The esophagus is unremarkabl e. Musculoskeletal: No aggressive focal bony lesions, acute fractures or dislocation. Chest wall: Unremarkable Partially visualized upper abdomen is grossly unremarkable. IMPRESSION: No evidence of acute or chronic pulmonary embolism. END IMPRESSION: All CT scans at this medical facility are performed using dose modulation techniques as appropriate t o a performed exam including the following: Automated exposure control was utilized; adjustment of th e MA and/or KV according to patient size; and use of iterative reconstruction technique.
[2024-07-28 21:48] LABS: Triglycerides 109 mg/dL (< 150)
[2024-07-28 21:50] LABS: Cholesterol 174 mg/dL (< 200); HDL Cholesterol 46 mg/dL (40-59)
[2024-07-28 21:51] LABS: LDL Cholesterol 112 mg/dL (< 100)
[2024-07-28] MEDS: ATORVASTATIN 20 MG TAB PO SCH (22:18)
[2024-07-28 23:27] LABS: Basophils # (auto) 0.1 10 ^3/uL (0-0.2); Basophils % (auto) 1.1 % (0.0-2.0); Eosinophils # (auto) 0.3 10 ^3/uL (0-0.8); Eosinophils % (auto) 3.1 % (0.0-7.0); Hematocrit 43.9 % (41.0-53.0); Hemoglobin 14.9 g/dL (13.5-17.5); Lymphocytes # (auto) 2.3 10 ^3/uL (0.4-5.4); Lymphocytes % (auto) 24.9 % (10.0-50.0); Mean Corpuscular Volume 85.2 fL (80.0-100.0); Monocytes # (auto) 0.5 10 ^3/uL (0-1.3); Monocytes % (auto) 5.2 % (0.0-12.0); Neutrophils % (auto) 65.7 % (37.0-80.0); Nucleated Red Blood Cells % 0.1 %; Platelet Count (auto) 206 10^3/uL (140-450); Red Blood Cells 5.16 10^6/uL (4.5-5.90); Red Cell Distribution Width 14.1 % (11.8-14.3); White Blood Cell 9.2 10^3/uL (4.4-10.8)
[2024-07-28 23:29] LABS: INR 1.05 (0.9-1.15); Partial Thromboplastin Time 30.4 SEC (24.5-34.5); Prothrombin Time 11.1 sec (9.3-11.8)
[2024-07-28 23:30] VITALS: PULSE 89; RESP 18; O2SAT 98
[2024-07-29] VITALS (25 sets, daily range): BP systolic 116–160; BP diastolic 65–100; PULSE 67–92; RESP 12–18; TEMP 97.5–98.2; O2SAT 93–97
[2024-07-29] MEDS: HEPARIN SODIUM (PORCINE) 5000 UNITS/ML 1ML VIAL IV ONE (00:13)
[2024-07-29] MEDS: HEPARIN DRIP/D5W 100UNITS/ML 250 ML IV SCH (00:20)
--- NOTE | 2024-07-29 01:07 | DVHHP2 ---
Admitting Diagnosis: NSTEMI History of Present Illness History Source: Patient Exam Limitations: No limitations HPI Mr. Fredrick Serrato is a 73 yo male with known history of LA, COPD, Depression, Hyperlipidemia, CAD with stent placement, hypertension who presents with a chief complaint of midsternal chest pain radiating to neck. Patient reports associated dyspnea and headache. Patient denies nausea, vomiting, dizziness. Patient found to have elevated troponin levels, admitted for further evaluation and treatment. Home Meds Active Scripts Oxycodone W/ Acetaminophen (Percocet 5/325MG) 1 Tab Tb, 1 TAB PO TID PRN, #14 TAB Prov:MICHELLE SILVESTRE MD 10/31/23 Acetaminophen (Tylenol 8 Hour Arthritis) 650 Mg Tab, 650 MG PO TID, #30 TAB Prov:NICHELLE REYNOSO 03/12/23 Reported Medications Enalapril Maleate (Enalapril Maleate) 10 Mg Tab, 10 MG PO DAILY, TAB 06/02/18 Aspirin (ASPIRIN 81) 81 Mg Tab, 81 MG OR DAILY, TAB 03/08/13 Metoprolol Succinate (Toprol Xl) 25 Mg Tab, MG PO DAILY 10/29/12 Past Medical History Cardiac: CAD, HTN, LA, Hyperlipidemia Pulmonary: COPD Central Nervous System: No pertinent Hx GI: No pertinent Hx Hemotology/Oncology: No pertinent Hx Hepatobiliary: No pertinent Hx Psychiatric: Depression Musculoskeletal: No pertinent Hx Rheumotologic: No pertinent Hx Infectious Disease: No peritnent Hx ENT: No pertinent Hx Renal/: No pertinent Hx Endocrine: No pertinent Hx Dermatology: No pertinent Hx Patient Family History: Patient reports no known family medical history. Smoker: <1 pack per day Alocohol: None Drugs: None Lives with: With family Domestic Violence: Neg Review of Systems Constitutional: No symptom reported Ears, Nose, & Throat: No symptom reported Eyes: No symptom reported Pulmonary/Respiratory: No symptom reported Cardiovascular: Chest Pain Gastrointestinal: No symptom reported Genitourinary: No symptom reported Musculoskeletal: No symptom reported Skin: No symptom reported Psychiatric: No symptom reported Endocrine: No symptom reported Hemotologic/Lymphatic: No symptom reported H&P Exam Vital Signs Vital Signs Date Time Temp Pulse Resp B/P (MAP) Pulse Ox O2 Delivery O2 Flow Rate FiO2 07/28/24 22:35 77 07/28/24 21:12 97.8 18 126/92 (103) 95 97.8 07/28/24 19:40 Room Air* 0 21 General Appeara: Well developed, Well nourished, Normal Appearance Head Exam: Normal inspection Neck Exam: Normal inspection, Non-tender, Normal alignment Eye Exam: bilateral eye Normal inspection, bilateral eye PERRL, bilateral eye EOMI Ear Exam: bilateral ear Auricle normal Nasal Exam: Normal inspection Mouth: Normal Inspection Pulmonary/Respiratory: Normal inspection, Normal breath sounds, Chest non-ten pam, Lungs clear Cardiovascular/Chest: Normal inspection, Regular rate, Normal Rhythm Peripheral Pulses: 2+ dorsalis pedis (R), 2+ dorsalis pedis (L), 2+ Radial (R), 2+ Radial (L) Abdominal Exam: Normal bowel sounds Rectal Exam: Deferred Male Genital 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 Exam: Normal hearing, Normal speech, PERRL Motor/Sensory: Normal sensory function, Normal motor function Neuro/Mental St: Alert, Oriented Appearance: Appropriate insight, Disheveled Eye contact/ Speech: Cooperative, Good eye contact, Normal speech Thoughts/Psych: Normal thought pattern Skin Exam: Normal inspection, Normal color, Warm/dry Labs/Xrays Labs Test 07/28/24 23:05 07/28/24 21:50 07/28/24 14:30 Range/Units White Blood Count 9.2 4.4-10.8 10^3/uL Red Blood Count 5.16 4.5-5.90 10^6/uL Hemoglobin 14.9 13.5-17.5 g/dL Hematocrit 43.9 41.0-53.0 % Mean Corpuscular Volume 85.2 80.0-100.0 fL Mean Corpuscular Hemoglobin 29.0 28.0-32.0 pg Mean Corpuscular Hemoglobin Concent 34.0 32.0-36.0 g/dL Red Cell Distribution Width 14.1 11.8-14.3 % Platelet Count 206 140-450 10^3/uL Mean Platelet Volume 7.1 6.9-10.8 fL Neutrophils (%) (Auto) 65.7 37.0-80.0 % Lymphocytes (%) (Auto) 24.9 10.0-50.0 % Monocytes (%) (Auto) 5.2 0.0-12.0 % Eosinophils (%) (Auto) 3.1 0.0-7.0 % Basophils (%) (Auto) 1.1 0.0-2.0 % Neutrophils # (Auto) 6.0 1.6-8.6 10 ^3/uL Lymphocytes # (Auto) 2.3 0.4-5.4 10 ^3/uL Monocytes # (Auto) 0.5 0-1.3 10 ^3/uL Eosinophils # (Auto) 0.3 0-0.8 10 ^3/uL Basophils # (Auto) 0.1 0-0.2 10 ^3/uL Nucleated Red Blood Cells 0.1 % Prothrombin Time 11.1 9.3-11.8 sec Prothrombin Time INR 1.05 0.9-1.15 Activated Partial Thromboplast Time 30.4 24.5-34.5 SEC Troponin I High Sensitivity 1193 *H </=54 ng/L D-Dimer, Quantitative 1.16 H 0.0-0.49 mg/L FEU Sodium Level 143 136-145 mmol/L Potassium Level 4.0 3.5-5.1 mmol/L Chloride Level 110 H 98-107 mmol/L Carbon Dioxide Level 26 20-31 mmol/L Anion Gap 7 5-15 Blood Urea Nitrogen 17 9-23 mg/dL Creatinine 1.27 0.700-1.30 mg/dL Glomerular Filtration Rate Calc 60 >90 mL/min BUN/Creatinine Ratio 13.4 10.0-20.0 Serum Glucose 114 H 74-106 mg/dL Calcium Level 10.6 H 8.7-10.4 mg/dL Triglycerides Level 109 < 150 mg/dL Cholesterol Level 174 < 200 mg/dL LDL Cholesterol 112 H < 100 mg/dL HDL Cholesterol 46 40-59 mg/dL Assessment/Plan Problem List: (1) NSTEMI (non-ST elevated myocardial infarction) (2) Acute coronary syndrome Plan This is a 73 yo male with known history of LA, CAD with stent placement, hypertension, hyperlipidemia, COPD, Depression who presents to the hospital with chest pain. Patient found to have 1. NSTEMI 2. Acute coronary syndrome 3. Hypertension 4. COPD 5. Hyperlipidemia 6. Depression Plan: Admit [facility] Cardiology consultation, 2D echocardiogram, serial troponin levels, ASA, Statin Heparin drip per pharmacy ACS protocol Continue home medications when reconciled Discussed all above with patient who verbalized agreement and understanding of care plan . All questions were answered. Patient's chart is reviewed. Patient is seen evaluated and admitted by nurse practitioner. I agree with the nurse practitioner's evaluation, documentation, assessment and care plan as outlined. Patient is evaluated by Cardiology and scheduled for coronary angiogram. Plan discussed with: Patient, Other Code Visit Code Visit Total Time (mins): 45 CYN MARIN July 29, 2024 01:07 LAVELL MCELROY MD July 29, 2024 11:12
--- NOTE | 2024-07-29 03:15 | ECG ---
[facility] Test Date: 2024-07-28 Test Time: 22:35:17 Pat Name: MAKENNA MORALEZ Department: ED Room: 0265D Gender: M Destination Coordinator: : 1950 Requested By: CYN MARIN Order Number: [id number] Reading MD: Efra Ortiz Measurements Intervals [place] Rate: 77 P: 77 [place]: 135 QRS: 55 QRSD: 98 T: 29 QT: 396 QTc: 449 Interpretive Statements Sinus rhythm Low voltage, precordial leads Electronically Signed On 07-30-2024 22:27:56 PDT by Efra Ortiz Please click the below link to view image of tracing.
[2024-07-29 03:22] LABS: Urine Bacteria None Seen /hpf (None Seen)
[2024-07-29 03:28] LABS: Urine Blood TRACE /uL (Negative); Urine Clarity Clear (Clear); Urine Color Yellow (Yellow); Urine Mucus FEW (None Seen); Urine Protein, UAD TRACE (Negative); Urine Squamous Epithelial Cell FEW /hpf (<5); Urine Urobilinogen Normal (Negative); Urine WBC 1 /HPF (0-3)
[2024-07-29 03:30] LABS: Urine Specific Gravity > 1.050 (1.001-1.035)
[2024-07-29 06:12] LABS: Sodium 144 mmol/L (136-145)
[2024-07-29 06:13] LABS: Anion Gap 6 (5-15); Carbon Dioxide 27 mmol/L (20-31)
[2024-07-29 06:14] LABS: Calcium 9.3 mg/dL (8.7-10.4)
[2024-07-29 06:18] LABS: BUN/Creatinine Ratio 15.7 (10.0-20.0); Blood Urea Nitrogen 16 mg/dL (9-23); Glucose 83 mg/dL (74-106)
[2024-07-29 06:23] LABS: Chloride 111 mmol/L (98-107); INR 1.07 (0.9-1.15); Partial Thromboplastin Time 59.1 SEC (24.5-34.5); Prothrombin Time 11.3 sec (9.3-11.8)
[2024-07-29 08:50] LABS: Cannabinoid Screen, Urine Pos (NEGATIVE); Opiate Scree,Urine Neg (NEGATIVE)
[2024-07-29 08:52] LABS: Amphetamine Screen, Urine Neg (NEGATIVE); Barbiturate Scree,Urine Neg (NEGATIVE); Benzodiazephine Screen, Urine Neg (NEGATIVE); Phencyclidine Screen, Urine Neg (NEGATIVE)
[2024-07-29] MEDS ORDERED: ENOXAPARIN SOD 100 MG/1 ML SYRINGE SC SCH (09:00)
[2024-07-29 09:14] LABS: Cocaine Screen, Urine Neg (NEGATIVE)
--- NOTE | 2024-07-29 09:21 | DVHINCON2 ---
ZENAIDA MCGUIRE [facility] 07/29/24 0921: Date Seen: July 29, 2024 Referring Physician JIMMY Hdz Reason for Consultation Chest pain, elevated troponin History of Present Illness This is a 73-year-old male patient who presents to the emergency room with chief complaint of chest pain for one day. The patient states that chest pain began at approximately 11:00 a.m. yesterday while at home. He describes the pain as unprovoked, constant, sharp in nature with radiation from left side of chest across to right side of chest. Associated symptoms include headache and shortness of breath. Initial twelve lead electrocardiogram reveals sinus tachycardia with artifact seen in lead V3. Initial troponin level of 90ng/L with significant up trend and current peak level at 7937ng/L. Significant past medical history includes coronary artery disease status post PTCA X 1 KEERTHI in 2010, myocardial infarction, hypertension, dyslipidemia, COPD, tobacco use and depression. 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 Per records, the patient underwent a nuclear stress test in 2018 that was negative. He denies any cardiac workup since then. Past Medical History Past medical history reviewed. No other significant than mentioned above. Past Surgical History Hernia repair Right rotator cuff repair Family History: Patient reports no known family medical history. Family History Family history reviewed. Social History Patient has a 55 pack-year history, smokes one pack per day Patient admits to occasional marijuana use Denies any alcohol use Allergies: Coded Allergies: Morphine (Verified Allergy, Unknown, 10/27/23) Penicillins (Verified Allergy, Unknown, 10/27/23) Sulfa Antibiotics (Verified Allergy, Unknown, 10/27/23) Home Meds Active Scripts Oxycodone W/ Acetaminophen (Percocet 5/325MG) 1 Tab Tb, 1 TAB PO TID PRN, #14 TAB Prov:MICHELLE SILVESTRE MD 10/31/23 Acetaminophen (Tylenol 8 Hour Arthritis) 650 Mg Tab, 650 MG PO TID, #30 TAB Prov:NICHELLE REYNOSO 03/12/23 Reported Medications Enalapril Maleate (Enalapril Maleate) 10 Mg Tab, 10 MG PO DAILY, TAB 06/02/18 Aspirin (ASPIRIN 81) 81 Mg Tab, 81 MG OR DAILY, TAB 03/08/13 Metoprolol Succinate (Toprol Xl) 25 Mg Tab, MG PO DAILY 8/31/13 Home Meds Home medications reviewed. Current Medications Current Medications Medications (Trade) Dose Ordered Sig/Pretty Route PRN Reason Start Time Stop Time Status Last Admin Nitroglycerin (Ntrostat Sublingual) 0.4 mg Q5MINP PRN SL FOR CHEST PAIN 07/28/24 21:00 07/28/24 22:02 DC Ondansetron HCl (Zofran) 4 mg Q6HP PRN IV NAUSEA / VOMITING 07/28/24 21:00 Enoxaparin Sodium (Lovenox) 80 mg Q12H SC 07/29/24 09:00 07/28/24 22:43 DC Aspirin 81 mg DAILY PO 07/29/24 10:00 Atorvastatin Calcium (Lipitor) 40 mg HS PO 07/28/24 22:00 07/28/24 22:18 Acetaminophen/ Hydrocodone Bitart (Verdi 5/325MG Tab) 1 tab Q6HPRN PRN PO PAIN SCALE 1 THRU 6 07/28/24 21:00 Acetaminophen (Tylenol Tablet) 650 mg Q6HPRN PRN PO PAIN SCALE 1-3 OR TEMP>100.4 07/28/24 21:00 Pantoprazole Sodium (Protonix) 40 mg DAILY IV 07/29/24 10:00 Nitroglycerin (Ntrostat Sublingual) 0.4 mg Q5MINP PRN SL FOR CHEST PAIN 07/28/24 21:15 Heparin Sodium/ Dextrose 250 ml @ 9 mls/hr Q24H IV 07/28/24 22:45 07/29/24 00:20 Review of Systems Constitutional: No symptom reported Ears, Nose, & Throat: No symptom reported Eyes: No symptom reported Neurological: No symptoms reported Pulmonary/Respiratory: Shortness of breath Cardiovascular: Chest pain Gastrointestinal: No symptom reported Genitourinary: No symptom reported Musculoskeletal: No symptom reported Skin: No symptom reported Psychiatric: No symptom reported Endocrine: No symptom reported Hematologic/Lymphatic: No symptom reported Vital Signs Vital Signs Date Time Temp Pulse Resp B/P (MAP) Pulse Ox O2 Delivery O2 Flow Rate FiO2 07/29/24 07:55 97.5 80 16 140/93 (109) 95 97.5 07/29/24 07:55 Room Air* 0 21 Physical Exam General Appearance: Cooperative. Well-developed. Well-nourished. No acute distress. Pulmonary/Respiratory: Clear, bilateral breaths sounds. Cardiovascular/Chest: Regular rate and rhythm. Peripheral Pulses: 2+ Radial (R). 2+ Radial (L). 2+ Pedal (R). 2+ Pedal (L) Abdominal Exam: Normal bowel sounds. Ankle Exam: Negative ankle edema Lower extremities: Negative lower extremity edema Neuro/Mental Status: A/OX4, coherent. Thoughts/Psych: Normal thought pattern. Appropriate mood and affect. Good judgment and insight. Appearance: No acute distress. Skin Exam: Normal inspection. Normal color. Warm and dry. Labs/Diagnostic Data Labs Test 07/29/24 08:30 07/29/24 05:50 07/29/24 03:15 07/28/24 23:05 Range/Units Prothrombin Time 11.3 9.3-11.8 sec Prothrombin Time INR 1.07 0.9-1.15 Activated Partial Thromboplast Time 59.1 H 24.5-34.5 SEC Sodium Level 144 136-145 mmol/L Potassium Level 4.0 3.5-5.1 mmol/L Chloride Level 111 H 98-107 mmol/L Carbon Dioxide Level 27 20-31 mmol/L Anion Gap 6 5-15 Blood Urea Nitrogen 16 9-23 mg/dL Creatinine 1.02 0.700-1.30 mg/dL Glomerular Filtration Rate Calc 78 >90 mL/min BUN/Creatinine Ratio 15.7 10.0-20.0 Serum Glucose 83 74-106 mg/dL Hemoglobin A1c 5.5 <5.7 % A1C Calcium Level 9.3 8.7-10.4 mg/dL Magnesium Level 1.8 1.6-2.6 mg/dL Urine Color Yellow Yellow Urine Clarity Clear Clear Urine pH 7.0 5.0-9.0 Urine Specific [place] > 1.050 H 1.001-1.035 Urine Protein Trace H Negative Urine Ketones Negative Negative Urine Blood Trace H Negative /uL Urine Nitrite Negative Negative Urine Bilirubin Negative Negative Urine Urobilinogen Normal Negative mg/dL Urine Leukocyte Esterase Negative Negative /uL Urine RBC 8 0 - 3 /hpf Urine Microscopic WBC 1 0-3 /HPF Urine Squamous Epithelial Cells Few <5 /hpf Urine Bacteria None seen None Seen /hpf Urine Mucus Few None Seen Urine Glucose Normal Normal mg/dL Urine Opiates Screen Neg NEGATIVE Urine Fentanyl Screen Neg NEGATIVE Urine Barbiturates Screen Neg NEGATIVE Urine Phencyclidine Screen Neg NEGATIVE Urine Amphetamines Screen Neg NEGATIVE Urine Benzodiazepines Screen Neg NEGATIVE Urine Cannabinoids Screen Pos NEGATIVE White Blood Count 9.2 4.4-10.8 10^3/uL Red Blood Count 5.16 4.5-5.90 10^6/uL Hemoglobin 14.9 13.5-17.5 g/dL Hematocrit 43.9 41.0-53.0 % Mean Corpuscular Volume 85.2 80.0-100.0 fL Mean Corpuscular Hemoglobin 29.0 28.0-32.0 pg Mean Corpuscular Hemoglobin Concent 34.0 32.0-36.0 g/dL Red Cell Distribution Width 14.1 11.8-14.3 % Platelet Count 206 140-450 10^3/uL Mean Platelet Volume 7.1 6.9-10.8 fL Neutrophils (%) (Auto) 65.7 37.0-80.0 % Lymphocytes (%) (Auto) 24.9 10.0-50.0 % Monocytes (%) (Auto) 5.2 0.0-12.0 % Eosinophils (%) (Auto) 3.1 0.0-7.0 % Basophils (%) (Auto) 1.1 0.0-2.0 % Neutrophils # (Auto) 6.0 1.6-8.6 10 ^3/uL Lymphocytes # (Auto) 2.3 0.4-5.4 10 ^3/uL Monocytes # (Auto) 0.5 0-1.3 10 ^3/uL Eosinophils # (Auto) 0.3 0-0.8 10 ^3/uL Basophils # (Auto) 0.1 0-0.2 10 ^3/uL Nucleated Red Blood Cells 0.1 % Test 07/28/24 14:30 Range/Units D-Dimer, Quantitative 1.16 H 0.0-0.49 mg/L FEU Triglycerides Level 109 < 150 mg/dL Cholesterol Level 174 < 200 mg/dL LDL Cholesterol 112 H < 100 mg/dL HDL Cholesterol 46 40-59 mg/dL Assessment NSTEMI, rule out progressive coronary artery disease Coronary artery disease status post PTCA x1 KEERTHI in 2010 (on ASA) History myocardial infarction Hypertension Dyslipidemia COPD Tobacco use Plan/Recommendation We will continue with the following plan/recommendations (Dr. Richardson): * Transthoracic echocardiogram to evaluate cardiac function * Chest pain protocol * BRYAN score: 6 points * HEART score: 8 points (high score) * Continue with heparin drip per ACS protocol * Single antiplatelet therapy and lipid-lowering agents * Close Cardiac surveillance Case discussed with . Given the patient's clinical presentation, elevated troponin level, and comorbidities, the patient may benefit from a coronary angiogram with left heart catheterization. The procedure was discussed with the patient full detail including risks and benefits. Risks include but are not limited to bleeding, contrast induced nephropathy, stroke, and even . Patient understands and is agreeable to undergo the procedure. We will schedule the patient at soonest availability on 07/29/2024. Thank you for allowing us to care for this patient. Please call with any questions or concerns. Critical care time spent: 41 minutes This medical document was created using an electronic medical record system with voice recognition software and computerized dictation system. Although this document has been carefully reviewed, there might still be some phonetic and typographical errors. Occasional wrong-word or ``sound-alike substitutions may have occurred due to the inherent limitations of voice recognition software. These areas are purely typographical due to imperfections of the software programs and do not reflect any compromise in the patient's medical care. Please read the chart carefully and recognize, using context, where these substitutions have occurred. Plan discussed with: Patient NYHA Physical activity limitations: NA Date of Service: July 29, 2024 Billing Provider: ZENAIDA MCGUIRE Cardiology Common Codes: [id number] INP/OBS CARE (High) Cardiology Consultation Codes: [id number] CONSULT <45MIN JONATHAN RICHARDSON MD 07/29/24 1402: Family History: Patient reports no known family medical history. Allergies: Coded Allergies: Morphine (Verified Allergy, Unknown, 10/27/23) Penicillins (Verified Allergy, Unknown, 10/27/23) Sulfa Antibiotics (Verified Allergy, Unknown, 10/27/23) Home Meds Active Scripts Oxycodone W/ Acetaminophen (Percocet 5/325MG) 1 Tab Tb, 1 TAB PO TID PRN, #14 TAB Prov:MICHELLE SILVESTRE MD 10/31/23 Acetaminophen (Tylenol 8 Hour Arthritis) 650 Mg Tab, 650 MG PO TID, #30 TAB Prov:NICHELLE REYNOSO 03/12/23 Reported Medications Enalapril Maleate (Enalapril Maleate) 10 Mg Tab, 10 MG PO DAILY, TAB 06/02/18 Aspirin (ASPIRIN 81) 81 Mg Tab, 81 MG OR DAILY, TAB 03/08/13 Metoprolol Succinate (Toprol Xl) 25 Mg Tab, MG PO DAILY 10/29/12 Plan/Recommendation pt seen with cv team high risk nstemi recommendl [facility] stat echo heparin gtt Plan discussed with: Patient ZENAIDA MCGUIRE July 29, 2024 09:21 JONATHAN RICHARDSON MD July 29, 2024 14:02
[2024-07-29] MEDS: ASPirin 81 mg TAB PO SCH (09:58)
[2024-07-29] MEDS: PANTOPRAZOLE 40 MG/10 ML VIAL INJ IV SCH (09:59)
[2024-07-29] MEDS: SODIUM CHLORIDE 0.9% 1,000 ML IV SCH (11:23)
[2024-07-29] MEDS: ANGIOMAX 250 MG VIAL IV ONE ×2 (11:46→12:57)
[2024-07-29] MEDS: SODIUM CHL 0.9% 50 ML ONE ×2 (11:47→12:57)
[2024-07-29] MEDS: IODIXANOL 320MG/ML 100ML BTL IV ONE ×2 (11:47→12:47)
[2024-07-29] MEDS: fentaNYL CITRATE 100 MCG/2 ML VL ONE (11:47)
[2024-07-29] MEDS: MIDAZOLAM HCL 2MG/2ML 2ml VIAL (1mg/ml) ONE (11:47)
[2024-07-29] MEDS: LIDOCAINE 2%HCL (LOCAL ANESTH.) INJ 20ML MDV ONE (11:47)
[2024-07-29] MEDS: VERAPAMIL 2.5MG/ML INJ 2ML VIAL IV ONE (11:47)
[2024-07-29] MEDS: ATROPINE SULF 1 MG/10ml SYR ONE (12:36)
[2024-07-29] MEDS: TICAGRELOR 90 MG TAB ONE (13:31)
[2024-07-29] MEDS: EPTIFIBATIDE INJ (2MG/ML) 10ML VIAL IV ONE (13:31)
[2024-07-29 14:10] LABS: Basophils # (auto) 0.1 10 ^3/uL (0-0.2); Basophils % (auto) 0.9 % (0.0-2.0); Eosinophils # (auto) 0.2 10 ^3/uL (0-0.8); Hematocrit 42.7 % (41.0-53.0); Hemoglobin 14.4 g/dL (13.5-17.5); Lymphocytes # (auto) 1.7 10 ^3/uL (0.4-5.4); Lymphocytes % (auto) 21.9 % (10.0-50.0); Mean Corpuscular Hemoglobin 28.9 pg (28.0-32.0); Mean Corpuscular Hgb Conc. 33.7 g/dL (32.0-36.0); Mean Corpuscular Volume 85.9 fL (80.0-100.0); Monocytes # (auto) 0.4 10 ^3/uL (0-1.3); Monocytes % (auto) 4.9 % (0.0-12.0); Neutrophils # (auto) 5.4 10 ^3/uL (1.6-8.6); Neutrophils % (auto) 69.3 % (37.0-80.0); Platelet Count (auto) 191 10^3/uL (140-450); Red Blood Cells 4.97 10^6/uL (4.5-5.90); Red Cell Distribution Width 14.2 % (11.8-14.3); White Blood Cell 7.8 10^3/uL (4.4-10.8)
--- NOTE | 2024-07-29 14:20 | DVHSR ---
APPROVED REPORT EXAM: LIMITED Two-dimensional and M-mode echocardiogram with Doppler and color Doppler. Blood Pressure: 140/93 mmHg INDICATION Chest Pain Elevated Trops RISK FACTORS Height: 5' 7", Weight: 177 DIMENSIONS LVDd4.8 (3.8-5.7cm)LA (2D)3.6 (1.9-4.0cm)Aortic Root3.6 (2.0-3.7cm) LVDs3.5 (2.5-4.0cm)LA (MM) (1.9-4.0cm)Aortic Cusp Exc1.6 (1.5-2.0cm) EF (%) 52.0 (55-70%)Rt. Atrium3.9 (1.9-4.0cm)Asc. Aorta cm IVSd1.0 (0.7-1.1cm)RV (D) (1.8-2.4cm) PWd1.1 (0.7-1.1cm) Mitral Valve MitralMitral Stenosis E wave0.70m/sMV Mean GR.mmHg A wave1.00m/sMV Peak GR.mmHg E/A ratio0.72D MVAcm2 Aortic Valve Aortic ValveAortic Stenosis V10.70m/Yuly Mean GR.2mmHg V21.10m/Yuly Peak GR.5mmHg LVOT Diameter2.3 (1.8-2.4cm)Doppler AVA2.64cm2 Tricuspid Valve TR Velocity2.70m/s [id number] Other Information Quality : Technically LimitedRhythm : Technically limited study due to body habitus. Conclusion lvef 60% by visual estimate borderline hypokinetic basal wall normal rv function no severe valve abnormalities noted
--- NOTE | 2024-07-29 18:11 | DVHOP ---
DATE OF SURGERY: 07/29/2024 PREOPERATIVE DIAGNOSIS: High-risk non-STEMI. POSTOPERATIVE DIAGNOSIS: High-risk non-STEMI. PROCEDURES PERFORMED: * Left heart catheterization. * Selective coronary angiogram. * Conscious sedation administration and supervision less than 15 minutes, as well as 15-30 minutes, as well as 30-45 minutes, as well as 45-60 minutes. * Fluoroscopy use interpretation: PTCA, single vessel. PCI, single vessel. Acute VA intervention, single vessel. Mechanical thrombectomy using a Penumbra CAT RX device, [id number], single vessel. PROCEDURE IN DETAIL: The patient signed informed consent, understanding the risks, benefits and alternatives of the procedure, and he wished to proceed. This is a high-risk non-STEMI with elevated troponin. He has a history of PCI many decades ago with an EKG showing sinus rhythm with PVCs. The patient was brought to the label press operator in n.p.o. state and prepped and draped in sterile fashion. Sedation was used per cardiac cath protocol. I administered 1 mL of 2% lidocaine in his right wrist with an antegrade femoral puncture. I cannulated his right radial artery and placed a 6-[place] Glidesheath Slender. Next, an intra-arterial spasmolytic was administered. At this point, I took a Jayess catheter with a Glidewire for coronary angiogram after traversing a tortuous radial artery. At this point, angiogram was performed showing left main patent, LAD proximal large vessel patent, mid LAD is patent with mild 20%-30% stenosis, distal LAD and apical LAD is patent. There is some collateral flow to the RCA as well. There are several diagonal branches coming off laterally that are free of any severe disease. Next, is the circumflex: The circumflex is a moderate vessel, proximally is patent, giving off an OM1 that is free of any severe disease in the OM2 as well. The distal circumflex OM region is giving off very large grade 3 collaterals to the right side. There appears to be a distal RPL getting into the mid to distal RCA. His RCA proximally is completely occluded with BRYAN 0 flow and a large amount of thrombus in a previously placed stent many decades ago. INTERVENTION: At this point, I switched to a 6-[place] JR4 guide. Angiomax bolus and drip had been initiated. I brought an 0.014 x ____ cm Whisper wire ____ given the extensive amount of thrombus and I was concerned about all the collateral flow going from the left to right system as this may be some form of chronic occlusion as well. I was able to wire into the distal mid RCA after the stent and after the occlusion into a marginal branch. I brought a Fielder XT wire as well and I was able to cross into that marginal branch. I brought a 1.5 balloon and a 2.5 balloon for angioplasty, improving the flow from BRYAN 0 to BRYAN 1 into the marginal. I did see what appears to be an old stent in the mid to distal RCA and I rewired my Fielder XT into that mid to distal RCA, but I was unable to cross into the distal portion. It is felt at this point that that was likely a chronic occlusion from an old undersized stent from many decades ago and that is why the patient has significant collaterals already formed and that likely this proximal RCA that feeds a moderate-sized marginal branch was likely the acute occlusion at this point and the mid to distal RCA was nonfunctional. So, I brought up a A[place]on CAT RX catheter and performed mechanical thrombectomy with thrombus removal. Satisfied with that result, I decided to place a 2.5 x 12 mm stent. I crossed the distal lesions from the distal portion of that proximal stent and I inflated up to 16 atmospheres with 2 separate inflations, each lasting 15 seconds. Following this, I removed the stent balloon. Angiogram was performed showing 0% residual stenosis into the mid RCA and into the marginal branch supplying the distal RCA into the PDA, appears to be a chronic total occlusion with retrograde collaterals from the left system that are grade 3. At this point, the patient tolerated the procedure. All guidewires were removed. He was chest-pain free. The patient was given Brilinta load and one dose of IV Integrilin. CONCLUSION: * Successful PTCA and PCI of a subacutely occluded proximal RCA, previously placed stent. * The patient appears to have a distal RCA that is chronically occluded with grade 3 collaterals with possibly an old stent within that. PLAN: * Dual antiplatelet therapy for at least 1 year uninterrupted. * Smoking cessation. * Check 2D echo. * Hypertension management. * High-dose statin. Irving Huang MD CM/PRETTY/BONNIE TID: [id number] RECEIPT: [id number]
--- NOTE | 2024-07-29 18:57 | ECG ---
[facility] Test Date: 2024-07-29 Test Time: 06:35:36 Pat Name: MAKENNA MORALEZ Department: ED Room: 0265D A Gender: M Prize Jacker: TRUDI : 1950 Requested By: CYN MARIN Order Number: [id number] Reading MD: Efra Ortiz Measurements Intervals [place] Rate: 76 P: 77 MA: 135 QRS: 69 QRSD: 102 T: 51 QT: 402 QTc: 453 Interpretive Statements Sinus rhythm Electronically Signed On 07-30-2024 22:28:58 PDT by Efra Ortiz Please click the below link to view image of tracing.
[2024-07-29] MEDS: ENALAPRIL MALEATE 10 MG TAB PO ONE (19:55)
[2024-07-29] MEDS: CLOPIDOGREL BISULFATE 75 MG TAB PO ONE (21:56)
[2024-07-29] MEDS: HYDROcodone-ACET 5/325MG TAB PO PRN (22:10)
[2024-07-30] VITALS (15 sets, daily range): BP systolic 97–145; BP diastolic 58–102; PULSE 65–96; RESP 13–20; TEMP 97.3–98.6; O2SAT 93–96
[2024-07-30 05:35] LABS: Basophils # (auto) 0.1 10 ^3/uL (0-0.2); Basophils % (auto) 1.2 % (0.0-2.0); Eosinophils # (auto) 0.4 10 ^3/uL (0-0.8); Eosinophils % (auto) 5.2 % (0.0-7.0); Hematocrit 43.3 % (41.0-53.0); Hemoglobin 14.6 g/dL (13.5-17.5); Lymphocytes % (auto) 27.2 % (10.0-50.0); Mean Corpuscular Hemoglobin 28.8 pg (28.0-32.0); Mean Corpuscular Hgb Conc. 33.6 g/dL (32.0-36.0); Mean Corpuscular Volume 85.7 fL (80.0-100.0); Monocytes # (auto) 0.5 10 ^3/uL (0-1.3); Monocytes % (auto) 6.5 % (0.0-12.0); Neutrophils # (auto) 4.4 10 ^3/uL (1.6-8.6); Neutrophils % (auto) 59.9 % (37.0-80.0); Nucleated Red Blood Cells % 0.1 %; Platelet Count (auto) 191 10^3/uL (140-450); Red Blood Cells 5.05 10^6/uL (4.5-5.90); Red Cell Distribution Width 13.9 % (11.8-14.3); White Blood Cell 7.3 10^3/uL (4.4-10.8)
[2024-07-30 05:46] LABS: Potassium 3.9 mmol/L (3.5-5.1); Sodium 142 mmol/L (136-145)
[2024-07-30 05:47] LABS: Anion Gap 6 (5-15); Calcium 9.4 mg/dL (8.7-10.4); Carbon Dioxide 26 mmol/L (20-31)
[2024-07-30 05:52] LABS: Chloride 110 mmol/L (98-107); Glucose 88 mg/dL (74-106)
[2024-07-30 05:53] LABS: BUN/Creatinine Ratio 12.8 (10.0-20.0); Blood Urea Nitrogen 14 mg/dL (9-23)
--- NOTE | 2024-07-30 09:52 | DVHPN2 ---
Progress Note Date Seen: Jul 30, 2024 Medical Necessity Reason Pt with a Central, PICC or Fol: No Subjective Patient reports: Feels better Objective vital signs Vital Sign Date Time Temp Pulse Resp B/P (MAP) Pulse Ox O2 Delivery O2 Flow Rate FiO2 07/30/24 08:00 97.9 72 13 145/90 (108) 96 97.9 07/30/24 08:00 Room Air* 0 21 Total Intake and Output 07/29/24 07/29/24 07/30/24 15:00 23:00 07:00 Intake Total 18 ml 450 ml Output Total 300 ml 500 ml Balance 18 ml -300 ml -50 ml medications Current Medications Medications Dose Ordered Sig/Pretty Route Start Time Stop Time Status Last Admin Dose Admin Ondansetron HCl 4 mg Q6HP PRN IV 07/28/24 21:00 Aspirin 81 mg DAILY PO 07/29/24 10:00 07/29/24 09:58 81 MG Atorvastatin Calcium 40 mg HS PO 07/28/24 22:00 07/29/24 21:57 40 MG Acetaminophen/ Hydrocodone Bitart 1 tab Q6HPRN PRN PO 07/28/24 21:00 07/29/24 22:10 1 TAB Acetaminophen 650 mg Q6HPRN PRN PO 07/28/24 21:00 Pantoprazole Sodium 40 mg DAILY IV 07/29/24 10:00 07/29/24 09:59 40 MG Nitroglycerin 0.4 mg Q5MINP PRN SL 07/28/24 21:15 Sodium Chloride 1,000 ml @ 60 mls/hr [id number] IV 07/29/24 11:15 07/30/24 03:55 60 MLS/HR Clopidogrel Bisulfate 75 mg DAILY PO 07/30/24 10:00 Enalapril Maleate 10 mg DAILY PO 07/30/24 10:00 Metoprolol Succinate 25 mg DAILY PO 07/30/24 10:00 Examination: GENERAL:Abnormal, HEENT:Abnormal, LUNGS:Abnormal, CVS:Abnormal, ABDOMEN:Abnormal laboratory and microbiology Laboratory Tests 07/30/24 05:16 Test 07/30/24 05:16 Range/Units Serum Glucose 88 74-106 mg/dL Problem List/Assessment/Plan Problem List/Assessment/Plan nstemi cad tobacco htn hL cv cleared for dc home when medically stable dc home on asa plavix 75 mg (cannot leave until family picks up med, pt and RN aware of this) statin BB fu 3 weeks Plan discussed with: Patient My Orders My Orders Orders - JONATHAN RICHARDSON MD Procedure Category Date Status Time Clopidogrel Bisulfate PHA 07/30/24 In Process (Plavix) 10:00 Enalapril Tablet PHA 07/30/24 In Process (Vasotec Tablet) 10:00 Metoprolol Xl PHA 07/30/24 In Process Succinate (Toprol Xl) 10:00 Date of Service: Jul 30, 2024 Billing Provider: JONATHAN RICHARDSON MD Common Visit Codes: NOT BILLABLE JONATHAN RICHARDSON MD Jul 30, 2024 09:52
[2024-07-30] MEDS: METOPROLOL SUCCINATE XL 50 MG TAB PO SCH (10:00)
[2024-07-30] MEDS: ENALAPRIL MALEATE 10 MG TAB PO SCH (10:01)
[2024-07-30] MEDS: CLOPIDOGREL BISULFATE 75 MG TAB PO SCH (10:02)
[2024-07-30] MEDS ORDERED: CLOP75TA70 PO (14:26)
[2024-07-30] MEDS ORDERED: METO25TA36 PO (14:26)
[2024-07-30] MEDS ORDERED: ASPI-498 OR (14:26)
[2024-07-30] MEDS ORDERED: ENAL1TAB47 PO (14:26)
--- NOTE | 2024-07-30 14:30 | DVHDS2 ---
Discharge Summary Date of Admission July 28, 2024 at 21:15 Date of Discharge: Jul 30, 2024 Labs/Diagnostic Data: Laboratory Results Test 07/30/24 05:16 07/29/24 09:30 07/29/24 05:50 07/29/24 03:15 White Blood Count 7.3 10^3/uL (4.4-10.8) Red Blood Count 5.05 10^6/uL (4.5-5.90) Hemoglobin 14.6 g/dL (13.5-17.5) Hematocrit 43.3 % (41.0-53.0) Mean Corpuscular Volume 85.7 fL (80.0-100.0) Mean Corpuscular Hemoglobin 28.8 pg (28.0-32.0) Mean Corpuscular Hemoglobin Concent 33.6 g/dL (32.0-36.0) Red Cell Distribution Width 13.9 % (11.8-14.3) Platelet Count 191 10^3/uL (140-450) Mean Platelet Volume 7.2 fL (6.9-10.8) Neutrophils (%) (Auto) 59.9 % (37.0-80.0) Lymphocytes (%) (Auto) 27.2 % (10.0-50.0) Monocytes (%) (Auto) 6.5 % (0.0-12.0) Eosinophils (%) (Auto) 5.2 % (0.0-7.0) Basophils (%) (Auto) 1.2 % (0.0-2.0) Neutrophils # (Auto) 4.4 10 ^3/uL (1.6-8.6) Lymphocytes # (Auto) 2.0 10 ^3/uL (0.4-5.4) Monocytes # (Auto) 0.5 10 ^3/uL (0-1.3) Eosinophils # (Auto) 0.4 10 ^3/uL (0-0.8) Basophils # (Auto) 0.1 10 ^3/uL (0-0.2) Nucleated Red Blood Cells 0.1 % Sodium Level 142 mmol/L (136-145) Potassium Level 3.9 mmol/L (3.5-5.1) Chloride Level 110 mmol/L (98-107) Carbon Dioxide Level 26 mmol/L (20-31) Anion Gap 6 (5-15) Blood Urea Nitrogen 14 mg/dL (9-23) Creatinine 1.09 mg/dL (0.700-1.30) Glomerular Filtration Rate Calc 72 mL/min (>90) BUN/Creatinine Ratio 12.8 (10.0-20.0) Serum Glucose 88 mg/dL (74-106) Calcium Level 9.4 mg/dL (8.7-10.4) Troponin I High Sensitivity 8188 ng/L (</=54) Prothrombin Time 11.3 sec (9.3-11.8) Prothrombin Time INR 1.07 (0.9-1.15) Activated Partial Thromboplast Time 59.1 SEC (24.5-34.5) Hemoglobin A1c 5.5 % A1C (<5.7) Magnesium Level 1.8 mg/dL (1.6-2.6) Thyroid Stimulating Hormone (TSH) 2.52 uIU/mL (0.55-4.78) Urine Color Yellow (Yellow) Urine Clarity Clear (Clear) Urine pH 7.0 (5.0-9.0) Urine Specific [place] > 1.050 (1.001-1.035) Urine Protein Trace (Negative) Urine Ketones Negative (Negative) Urine Blood Trace /uL (Negative) Urine Nitrite Negative (Negative) Urine Bilirubin Negative (Negative) Urine Urobilinogen Normal mg/dL (Negative) Urine Leukocyte Esterase Negative /uL (Negative) Urine RBC 8 /hpf (0 - 3) Urine Microscopic WBC 1 /HPF (0-3) Urine Squamous Epithelial Cells Few /hpf (<5) Urine Bacteria None seen /hpf (None Seen) Urine Mucus Few (None Seen) Urine Glucose Normal mg/dL (Normal) Urine Opiates Screen Neg (NEGATIVE) Urine Fentanyl Screen Neg (NEGATIVE) Urine Barbiturates Screen Neg (NEGATIVE) Urine Phencyclidine Screen Neg (NEGATIVE) Urine Amphetamines Screen Neg (NEGATIVE) Urine Benzodiazepines Screen Neg (NEGATIVE) Urine Cocaine Screen Neg (NEGATIVE) Urine Cannabinoids Screen Pos (NEGATIVE) Test 07/28/24 14:30 D-Dimer, Quantitative 1.16 mg/L FEU (0.0-0.49) Triglycerides Level 109 mg/dL (< 150) Cholesterol Level 174 mg/dL (< 200) LDL Cholesterol 112 mg/dL (< 100) HDL Cholesterol 46 mg/dL (40-59) Other Laboratory Tests 07/30/24 05:16 Brief Hx & Hospital Course: Mr. Fredrick Serrato is a 73 yo male with known history of RI, COPD, Depression, Hyperlipidemia, CAD with stent placement, hypertension who presents with a chief complaint of midsternal chest pain radiating to neck. Patient reports associated dyspnea and headache. Patient denies nausea, vomiting, dizziness. Patient found to have elevated troponin levels, admitted for further evaluation and treatment. He is admitted and started on anticoagulation cardiac medications. He is evaluated by histology technician. He underwent a successful coronary angiogram with coronary artery stent placement. Please see the detailed op report. Postop patient monitored overnight and did well. His chest pain has resolved. He is getting out of bed ambulating. He is feeling back to normal baseline status. Therefore histology technician felt he could be safely discharged home. Patient is advised to continue dual antiplatelet therapy and cholesterol medication as he is prescribed and other medicines per his discharge med reconciliation list. I have talked with the patient regarding her hospital diagnosis, treatment he received, discharge medications, discharge instructions and follow-up plan of care. He has verbalized understanding of these and agree with care plan as outlined Consults/Reason for consult APPROVED REPORT EXAM: LIMITED Two-dimensional and M-mode echocardiogram with Doppler and color Doppler. Blood Pressure: 140/93 mmHg INDICATION Chest Pain Elevated Trops RISK FACTORS Height: 5' 7", Weight: 177 DIMENSIONS LVDd 4.8 (3.8-5.7cm) LA (2D) 3.6 (1.9-4.0cm) Aortic Root 3.6 (2.0- 3.7cm) LVDs 3.5 (2.5-4.0cm) LA (MM) (1.9-4.0cm) Aortic Cusp Exc 1.6 (1.5- 2.0cm) EF (%) 52.0 (55-70%) Rt. Atrium 3.9 (1.9-4.0cm) Asc. Aorta cm IVSd 1.0 (0.7-1.1cm) RV (D) (1.8-2.4cm) PWd 1.1 (0.7-1.1cm) Mitral Valve Mitral Mitral Stenosis E wave 0.70m/s MV Mean GR. mmHg A wave 1.00m/s MV Peak GR. mmHg E/A ratio 0.7 2D MVA cm2 Aortic Valve Aortic Valve Aortic Stenosis V1 0.70m/s AO Mean GR. 2mmHg V2 1.10m/s AO Peak GR. 5mmHg LVOT Diameter 2.3 (1.8-2.4cm) Doppler BYRON 2.64cm2 Tricuspid Valve TR Velocity 2.70m/s RVSP 36mmHg Other Information Quality : Technically Limited Rhythm : Technically limited study due to body habitus. Conclusion lvef 60% by visual estimate borderline hypokinetic basal wall normal rv function no severe valve abnormalities noted SIGNED BY: IRVING RICHARDSON MD SIGNED DATE/TIME: 07/29/24 1420 Operations or Procedures DATE OF SURGERY: 07/29/2024 PREOPERATIVE DIAGNOSIS: High-risk non-STEMI. POSTOPERATIVE DIAGNOSIS: High-risk non-STEMI. PROCEDURES PERFORMED: * Left heart catheterization. * Selective coronary angiogram. * Conscious sedation administration and supervision less than 15 minutes, as well as 15-30 minutes, as well as 30-45 minutes, as well as 45-60 minutes. * Fluoroscopy use interpretation: PTCA, single vessel. PCI, single vessel. Acute RI intervention, single vessel. Mechanical thrombectomy using a Penumbra CAT RX device, [id number], single vessel. PROCEDURE IN DETAIL: The patient signed informed consent, understanding the risks, benefits and alternatives of the procedure, and he wished to proceed. This is a high-risk non-STEMI with elevated troponin. He has a history of PCI many decades ago with an EKG showing sinus rhythm with PVCs. The patient was brought to the lab rep in n.p.o. state and prepped and draped in sterile fashion. Sedation was used per cardiac cath protocol. I administered 1 mL of 2% lidocaine in his right wrist with an antegrade femoral puncture. I cannulated his right radial artery and placed a 6-[place] [employer] Glidesheath Slender. Next, an intra-arterial spasmolytic was administered. At this point, I took a [place] catheter with a Glidewire for coronary angiogram after traversing a tortuous radial artery. At this point, angiogram was performed showing left main patent, LAD proximal large vessel patent, mid LAD is patent with mild 20%-30% stenosis, distal LAD and apical LAD is patent. There is some collateral flow to the RCA as well. There are several diagonal branches coming off laterally that are free of any severe disease. Next, is the circumflex: The circumflex is a moderate vessel, proximally is patent, giving off an OM1 that is free of any severe disease in the OM2 as well. The distal circumflex OM region is giving off very large grade 3 collaterals to the right side. There appears to be a distal RPL getting into the mid to distal RCA. His RCA proximally is completely occluded with BRYAN 0 flow and a large amount of thrombus in a previously placed stent many decades ago. INTERVENTION: At this point, I switched to a 6-[place] JR4 guide. Angiomax bolus and drip had been initiated. I brought an 0.014 x ____ cm Whisper wire ____ given the extensive amount of thrombus and I was concerned about all the collateral flow going from the left to right system as this may be some form of chronic occlusion as well. I was able to wire into the distal mid RCA after the stent and after the occlusion into a marginal branch. I brought a Fielder XT wire as well and I was able to cross into that marginal branch. I brought a 1.5 balloon and a 2.5 balloon for angioplasty, improving the flow from BRYAN 0 to BRYAN 1 into the marginal. I did see what appears to be an old stent in the mid to distal RCA and I rewired my Fielder XT into that mid to distal RCA, but I was unable to cross into the distal portion. It is felt at this point that that was likely a chronic occlusion from an old undersized stent from many decades ago and that is why the patient has significant collaterals already formed and that likely this proximal RCA that feeds a moderate-sized marginal branch was likely the acute occlusion at this point and the mid to distal RCA was nonfunctional. So, I brought up a [employer] CAT RX catheter and performed mechanical thrombectomy with thrombus removal. Satisfied with that result, I decided to place a 2.5 x 12 mm stent. I crossed the distal lesions from the distal portion of that proximal stent and I inflated up to 16 atmospheres with 2 separate inflations, each lasting 15 seconds. Following this, I removed the stent balloon. Angiogram was performed showing 0% residual stenosis into the mid RCA and into the marginal branch supplying the distal RCA into the PDA, appears to be a chronic total occlusion with retrograde collaterals from the left system that are grade 3. At this point, the patient tolerated the procedure. All guidewires were removed. He was chest-pain free. The patient was given Brilinta load and one dose of IV Integrilin. CONCLUSION: * Successful PTCA and PCI of a subacutely occluded proximal RCA, previously placed stent. * The patient appears to have a distal RCA that is chronically occluded with grade 3 collaterals with possibly an old stent within that. PLAN: * Dual antiplatelet therapy for at least 1 year uninterrupted. * Smoking cessation. * Check 2D echo. * Hypertension management. * High-dose statin. Irving Richardson MD CM/VIS/BONNIE Condition at Discharge: Stable Final Diagnosis/Problems List Successful PTCA and PCI of a subacutely occluded proximal RCA, previously placed stent. * The patient appears to have a distal RCA that is chronically occluded with grade 3 collaterals with possibly an old stent within that. Discharge Disposition: Home Discharge Instruct/Medications Diet: Consistent carbohydrate, Cardiac 2g Na,low cholest Activity: No Restrictions, As Tolerated Follow Up/Referral: Dr. Richardson histology technician after two weeks post coronary artery stent follow up Medications: As prescribed and home medications per discharge med reconciliation list New Medications: Clopidogrel Bisulfate (Clopidogrel) 75 Mg Tab 1 TAB PO DAILY, #90 TAB 1 Refill Changed Medications: Metoprolol Succinate (Toprol Xl) 25 Mg Tab 25 MG PO DAILY, #60 TAB (Changed from: MG) Continued Medications: Acetaminophen (Tylenol 8 Hour Arthritis) 650 Mg Tab 650 MG PO TID, #30 TAB Aspirin (Aspirin 81) 81 Mg Tab 81 MG OR DAILY, #60 TAB (This prescription has been renewed) Enalapril Maleate (Enalapril Maleate) 10 Mg Tab 10 MG PO DAILY, #30 TAB (This prescription has been renewed) Oxycodone W/ Acetaminophen (Percocet 5/325MG) 1 Tab Tb 1 TAB PO TID PRN, #14 TAB Discharge Statement: "Patient was advised to return to the ER or call 911 if any headaches, dizziness, shortness of breath, chest pain, abdominal pain, bleeding, fevers, or worsening of medical condition. Patient was counseled about treatment plan, medications, possible side effects, patientverbalized understanding. All questions were answered to the best of my ability. This discharge took greater then 30 minutes in planning, reviewing documentation, counseling the patient, and discussing with other team members." ASSESSMENT ASSESSMENT Assessment Successful PTCA and PCI of a subacutely occluded proximal RCA, previously placed stent. * The patient appears to have a distal RCA that is chronically occluded with grade 3 collaterals with possibly an old stent within that. LAVELL MCELROY MD Jul 30, 2024 14:30
== END 2024-07-30 16:20 | disposition home or self-care (01) | DRG 322 ==
LOC: ER 14:19 → OVERFLOW 21:15 → DOU IN ICU 07-29 15:29
PROVIDERS: ADMIT Nurse Practitioner Family; ATTEND Nurse Practitioner Family
PROC: 027034Z Dilation of Coronary Artery, One Artery with Drug-eluting Intraluminal Device, Percutaneous Approach (ICD-10-PCS; principal; 2024-07-29)
PROC: 02C03ZZ Extirpation of Matter from Coronary Artery, One Artery, Percutaneous Approach (ICD-10-PCS; 2024-07-29)
PROC: B2111ZZ Fluoroscopy of Multiple Coronary Arteries using Low Osmolar Contrast (ICD-10-PCS; 2024-07-29)
PROC: 4A023N7 Measurement of Cardiac Sampling and Pressure, Left Heart, Percutaneous Approach (ICD-10-PCS; 2024-07-29)
DX: I21.4 Non-ST elevation (NSTEMI) myocardial infarction (principal); F17.210 Nicotine dependence, cigarettes, uncomplicated; F32.A Depression, unspecified; I10 Essential (primary) hypertension; J44.9 Chronic obstructive pulmonary disease, unspecified; E78.5 Hyperlipidemia, unspecified; Z88.5 Allergy status to narcotic agent; Z88.0 Allergy status to penicillin; Z88.2 Allergy status to sulfonamides; Z79.891 Long term (current) use of opiate analgesic; Z79.899 Other long term (current) drug therapy; Z79.82 Long term (current) use of aspirin; Z79.1 Long term (current) use of non-steroidal anti-inflammatories (NSAID); I25.2 Old myocardial infarction
CPT/HCPCS: 36415; 71045; 71275; 80048; 80061; 80307; 81001; 83036; 83735; 84443; 84484; 85025; 85379; 85610; 85730; 87081; 92941; 92973; 93005; 93306; 93458; 96372; 96374; 99152; 99291; C1874; G0378; J2250; J2470; Q9967